=== PATIENT | male | born 1950 | race Caucasian/White ===

== ENCOUNTER → 2016-09-30 | Outpatient (CLI) | payer BC, OTHER ==
[~2016-09-30] MED LIST: ASPEC81 PO; CHOLTAB3 PO; LISI-729 PO; METO25TA31 PO; PANT40TA PO; SILD1TAB11 PO; TEMA15CA4 PO
[2016-09-30 18:50] LABS: INR 1.9 (0.9-1.1); PROTHROMBIN TIME (PATIENT) 21.4 SECONDS (9.0-12.0)
== END | disposition home or self-care (01) ==
LOC: C.LABSPEC 10:36
PROVIDERS: ATTEND Family Medicine
DX: I26.99 Other pulmonary embolism without acute cor pulmonale (principal)

== ENCOUNTER → 2016-11-02 | Outpatient (CLI) | payer OTHER | END | disposition home or self-care (01) | LOC: C.LABSPEC 13:37 | PROVIDERS: ATTEND Family Medicine | DX: R53.83 Other fatigue (principal); R63.5 Abnormal weight gain ==

== ENCOUNTER → 2017-05-03 | Outpatient (CLI) | payer OTHER ==
[2017-05-03 18:22] LABS: INR 2.6 (0.9-1.1); PROTHROMBIN TIME (PATIENT) 29.3 SECONDS (9.0-12.0)
== END | disposition home or self-care (01) ==
LOC: C.LABSPEC 17:56
PROVIDERS: ATTEND Family Medicine
DX: I26.99 Other pulmonary embolism without acute cor pulmonale (principal)

== ENCOUNTER → 2017-11-10 | Outpatient (CLI) | payer OTHER ==
[2017-11-10 18:30] LABS: INR 3.3 (0.9-1.1)
== END | disposition home or self-care (01) ==
LOC: C.LABSPEC 17:53
PROVIDERS: ATTEND Family Medicine
DX: I26.99 Other pulmonary embolism without acute cor pulmonale (principal)

== ENCOUNTER → 2018-03-09 | Outpatient (CLI) | payer OTHER ==
[2018-03-09 18:37] LABS: INR 2.7 (0.9-1.1)
== END | disposition home or self-care (01) ==
LOC: C.LABSPEC 18:07
PROVIDERS: ATTEND Family Medicine
DX: I26.99 Other pulmonary embolism without acute cor pulmonale (principal)

== ENCOUNTER 2020-01-29 08:58 | Inpatient (IN) ==
[2020-01-29] MEDS ORDERED: VANCOMYCIN HCL 2,000 MG in SODIUM CHLORIDE 0.9% 500 ML IV STA (09:02)
[2020-01-29] MEDS ORDERED: ERTAPENEM SODIUM 10 ML IV STA (09:02)
[2020-01-29] MEDS ORDERED: VANCOMYCIN CONSULT ACTIVE PRN ×2 (09:02→13:31)
[2020-01-29] MEDS ORDERED: SODIUM CHLORIDE 0.9% 1000ML 1,000 ML IV SCH (09:15)
--- NOTE | 2020-01-29 09:31 | XRay Report ---
XR chest 1V portable CLINICAL HISTORY: SEPSIS COMPARISON STUDY: 06/03/2009 FINDINGS: There are postsurgical changes of a midline sternotomy. There is no failure. There is no fo jas pulmonary consolidation. There are no pleural effusions.[ IMPRESSION: No active disease in the chest. ACT 112: Negative or not required by law. Electronically signed by: Jairon Graves M.D. 01/29/2020 9:30 AM
[2020-01-29 09:36] LABS: Basophils # (auto) 0.02 K/uL (0-0.2); Basophils % (auto) 0.2 %; Eosinophils # (auto) 0.08 K/uL (0-0.5); Eosinophils % (auto) 0.6 %; Hematocrit (blood only) 48.7 % (42-52); Hemoglobin 17.3 g/dL (14.0-18.0); Immature Granulocytes # (auto) 0.05 K/uL (0.00-0.02); Immature Granulocytes % (auto) 0.4 %; Lymphocytes # (auto) 1.52 K/uL (1.2-3.4); Lymphocytes % (auto) 11.5 %; Mean Corpuscular Hemoglobin 33.9 pg (25-34); Mean Corpuscular Hgb Conc 35.5 g/dL (32-36); Mean Corpuscular Volume 95.3 fL (80-100); Mean Platelet Volume 10.3 fL (7.4-10.4); Monocytes # (auto) 1.46 K/uL (0.11-0.59); Neutrophils % (auto) 76.3 %; Platelet Count 190 K/uL (130-400); RDW Coefficient of Variation 16.2 % (11.5-14.5); RDW Standard Deviation 56.4 fL (36.4-46.3); Red Blood Count 5.11 M/uL (4.7-6.1); White Blood Count 13.23 K/uL (4.8-10.8)
[2020-01-29 09:47] LABS: INR 2.5 (0.9-1.1); Partial Thromboplastin Ratio 1.4; Partial Thromboplastin Time 38.1 Seconds (21.0-31.0); Prothrombin Time 25.1 Seconds (9.0-12.0)
[2020-01-29 09:50] LABS: Alanine Aminotransferase 37 U/L (12-78); Albumin Level 3.2 gm/dl (3.4-5.0); Aspartate Aminotransferase 25 U/L (15-37); BUN Creatinine Ratio 14.6 (10-20); Blood Urea Nitrogen 27 mg/dl (7-18); Calcium 8.4 mg/dl (8.5-10.1); Carbon Dioxide 25 mmol/L (21-32); Chloride 104 mmol/L (98-107); Creatinine Clr Calc Pharmacy 39.2 ml/min; Est GFR (African American) 43.3; Est GFR (Non-African American) 37.3; Glucose 110 mg/dl (70-99); Magnesium 2.2 mg/dl (1.8-2.4); Potassium 3.9 mmol/L (3.5-5.1); Sodium 137 mmol/L (136-145)
[2020-01-29 09:55] LABS: Albumin Globulin Ratio 0.7 (0.9-2); Alkaline Phosphatase 74 U/L (45-117); Bilirubin,Total 1.3 mg/dl (0.2-1); Globulin 4.3 gm/dl (2.5-4.0); Total Protein 7.5 gm/dl (6.4-8.2); Troponin I < 0.015 ng/ml (0-0.045)
--- NOTE | 2020-01-29 10:37 | History & Physical Report ---
Date of Service January 29, 2020 Assessment & Plan (1) Gram-positive bacteremia: This is a 69yo M with PMH of bicuspid aortic valve s/p AVR complicated by endocarditis requiring repeat valve replacement, ascending aortic aneurysm, pulmonary hypertension, pulmonary embolism on coumadin, chronic HF with preserved EF, CKD III, h/o splenectomy and other medical problems listed below who presents with intermittent fever x 2 weeks and was found to have gram positive bacteremia and possible endocarditis. -Intermittent fever x2 weeks with T-max of 100.7 F. Treated with 7-day course doxycycline for sinusitis 1 week ago -Blood cultures ordered yesterday with preliminary gram-positive cocci, patient instructed to return to hospital for further treatment -Started empirically on ertapenem and vancomycin. Follow cultures. Telemedicine ID consult placed with [employer] ID -ED physician discussed with Dr. Lyons of [facility] cardiology due to concern for possible endocarditis, with history of AVR, endocarditis in the past. TTE performed, read pending (2) H/O aortic valve replacement: History of AVR in 1999 while living in [place], [address] [facility] after found to have flail leaflet , 2011 [address] 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 Luis in [place] (3) Pulmonary embolism on long-term anticoagulation therapy: Continue anticoagulation with coumadin. INR currently 2.5 (4) Acute kidney injury superimposed on chronic kidney disease: Creatinine elevated at 1.8 (baseline ~1.5) -Hold Bumex for today. Reassess volume status and renal function tomorrow (5) Pulmonary hypertension: Takes Adempas 2.5mg TID normally. Has not taken since last evening and medication is not on formulary -Will call to see if son can bring in today. Otherwise, will reach out to pulmonary service for further recommendation DVT Ppx: Coumadin Code status: FULL PCP: Lucas Nelson Dispo: Admit to PCU. Plan to return home once medically stable. Patient seen in collaboration with Dr. Flannery. Please see addendum. History of Present Illness Chief Complaint: fever, myalgias Primary Care Provider: Lucas Nelson This is a 69yo M with PMH of bicuspid aortic valve s/p AVR complicated by endocarditis requiring repeat valve replacement, ascending aortic aneurysm, pulmonary hypertension, pulmonary embolism on coumadin, chronic HF with preserved EF, CKD III, h/o splenectomy and other medical problems listed below who presents with intermittent fever x 2 weeks. T-max of 100.7 F. Has also had intermittent chills. Was seen by PCP with initial thoughts of sinusitis and was treated with 7-day course of doxycycline. COVID-19 PCR was also ordered and negative on January 23. Intermittent fevers persisted and patient developed flank pain, which he was seen for in the ED yesterday with concern for appendicitis. CT abdomen pelvis was normal but blood cultures were obtained. Initial cultures grew gram-positive cocci patient was instructed to return to ED early this morning. Currently, patient feels well. Denies any fever, chills, headache, lightheadedness, chest pain, palpitations, shortness of breath, nausea, vomiting, abdominal pain, dysuria, diarrhea or constipation. There is concern for endocarditis due to history of AVR complicated by endocarditis in the past requiring repeat valve replacement. During this time, endocarditis was thought to be caused by lower extremity cellulitis. Patient denies any wounds or rashes. Did have 2 lipomas removed last week. CXR and UA appear unremarkable. ED provider discussed with cro, with TTE ordered. Broad-spectrum antibiotic coverage started with ertapenem and vancomycin. Most recent TTE from 11/04 with EF of 68%, normal left ventricular wall motion, mildly dilated right ventricle with normal systolic function, proximal ascending thoracic aorta is moderately enlarged (4.8 cm), moderately dilated aortic arch (4.2 cm) and estimated pulmonary artery systolic pressure is 61mm Hg. Allergies Allergy/AdvReac Type Severity Reaction Status Date / Time Penicillins Allergy Unknown RASH FROM Verified 01/29/20 10:39 PCN; HAD KEFLEX W/O PROBLEM rifampin Allergy Unknown rash Unverified 01/29/20 10:39 ceftriaxone AdvReac Intermediate RASH AND Unverified 01/29/20 10:39 TINGLING BACK OF NECK HE WAS COMPLETING A 6 W Home Medications Home Medications Medication Instructions Recorded Confirmed Type aluminum chloride [Hypercare] 15 % TOPICAL HS 01/28/20 01/29/20 History bumetanide 2 mg PO HS 01/28/20 01/29/20 History lovastatin 40 mg PO HS 01/28/20 01/29/20 History metoprolol tartrate 100 mg PO BID 01/28/20 01/29/20 History pantoprazole 40 mg PO QAM 01/28/20 01/29/20 History riociguat [Adempas] 2.5 mg PO TID 01/28/20 01/29/20 History temazepam 30 mg PO HS 01/28/20 01/29/20 History diphenhydramine HCl [Allergy 25 mg PO HS PRN 01/29/20 01/29/20 History Relief(diphenhydramin)] famotidine 40 mg PO HS 01/29/20 01/29/20 History warfarin 2.5 mg PO TUTH@0800 01/29/20 01/29/20 History warfarin 5 mg PO SUMOWEFRSA@0800 01/29/20 01/29/20 History Past Med/Surg History Medical History Ascending aortic aneurysm Chronic diastolic heart failure CKD (chronic kidney disease), stage III History of endocarditis Hypertension Pulmonary embolism on long-term anticoagulation therapy Pulmonary hypertension Surgical History H/O aortic valve replacement 1999 while living in [place], [address] [facility] after found to have flail leaflet , 2011 [address] 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 Physical Exam Physical Exam: General Appearance: WD/WN, vitals as above, NAD, sitting up in bed, pleasant, conversing easily Head: normocephalic, atraumatic Eyes: normal inspection, PERRL, conjunctivae normal, anicteric sclerae ENT: external ear and nose normal, oropharynx normal Neck: trachea midline, no thyromegaly normal visual inspection Respiratory: normal respiratory effort, lungs clear to auscultation, no wheeze, rales, rhonchi. Normal insp/exp effort, no accessory muscle use Cardiovascular: regular rate, rhythm, +systolic murmur, normal peripheral pulses, no BLE edema. Vessels: no JVD or carotid bruit Chest: normal inspection of chest Abdomen/GI: normal bowel sounds, soft, nontender, no hepatosplenomegaly Extremities/Musculoskeletal: no cyanosis or clubbing, extremities motor strength 5/5 Neurologic: PERRL, EOMI, accommodation nl, no face palsy, no dysarthria, CN's II-XI intact bilaterally and moves all extremities Psychiatric: A+Ox3, euthymic affect Skin: no rashes, normal color, warm/dry. + R forearm with healing incisions, sutures in place. No surrounding erythema or drainage Results & Data Results & Data ([facility]) Vital Signs (Past 12 Hours) Vital Signs Temp Pulse Resp BP Pulse Ox 01/29/20 09:04 37.1 C 76 18 104/73 94 Laboratory Results Short CBC 01/29/20 Range/Units 09:20 WBC 13.23 H (4.8-10.8) K/uL Hgb 17.3 (14.0-18.0) g/dL Hct 48.7 (42-52) % Plt Count 190 (130-400) K/uL BMP 01/29/20 09:20 Sodium 137 Potassium 3.9 Chloride 104 Carbon Dioxide 25 BUN 27 H Creatinine 1.83 H Glucose 110 H Calcium 8.4 L Cardiac Enzymes 01/29/20 Range/Units 09:20 Troponin I < 0.015 (0-0.045) ng/ml Liver Function 01/29/20 Range/Units 09:20 Total Bilirubin 1.3 H (0.2-1) mg/dl AST 25 (15-37) U/L ALT 37 (12-78) U/L Alkaline Phosphatase 74 (45-117) U/L Albumin 3.2 L (3.4-5.0) gm/dl Urine 01/29/20 Range/Units 12:05 Urine Color Dark Yellow Urine Appearance Clear (Clear) Urine pH 5.5 (4.5-7.5) Ur Specific [place] 1.021 (1.000-1.030) Urine Protein Trace H (Negative) Urine Glucose (UA) Negative (Negative) Diagnostic Findings CXR: IMPRESSION: No active disease in the chest. Code Status & VTE Plan VTE Prophylaxis Plan VTE Prophylaxis will be ordered: Yes Supervising Physician Co-Signing Physician Notes Patient is a 69-year-old male with complex medical history, presents with history of fever associated with chills since 2 weeks duration. He recently completed doxycycline course for 7 days for sinusitis. He was evaluated in ED yesterday for flank pain and concern for appendicitis which was ruled out. Patient had gram-positive cocci in his blood cultures currently. Given history of aortic valve replacement, with gram-positive cocci blood cultures, patient is admitted for management of possible endocarditis. Patient denies any chest pain, shortness of breath, dizziness, nausea, abdominal pain currently. On exam patient is moderately built and nourished, no apparent distress, normocephalic atraumatic, lungs are clear to auscultation, S1, S2, systolic murmur, no pedal edema, abdomen soft, nontender, normal bowel sounds, grossly no focal neurologic deficits, right upper extremity sutures (from recent lipoma resection. Patient is admitted for management of gram-positive bacteremia. To rule out endocarditis. Echo pending. Will start on broad-spectrum antibiotics including vancomycin, ertapenem. Consulted cardiology, ID. May need JO for further evaluation. Also noted KELBY on CKD. Will hold Bumex and give gentle fluids today. Monitor renal function, avoid nephrotoxic agents as able. Will repeat EKG in the morning to monitor for conduction problems. I personally reviewed the record. Patient is interviewed and examined at bedside. Patient's care is coordinated with Lorena Pepper PA-C. Please refer to the documentation above for details of patient's presentation and for discussion of other issues.
--- NOTE | 2020-01-29 10:43 | Emergency Department Note ---
Impression & Plan Bacteremia ED Provider Note INFORMANT: Patient ED PROVIDER(S): Agustin Mendoza MD CHIEF COMPLAINT: Abnormal labs PLAN: Disposition: admitted Condition: [Guarded] MEDICAL DECISION MAKING: Patient presented back to emergency department after he was notified that his blood cultures done yesterday by me were positive. The patient has gram- positive cocci growing in his blood culture. He noted feeling feverish over the evening. On presentation he had stable vital signs. He was hydrated. New blood cultures were ordered. Broad-spectrum antibiotic coverage with imipenem and vancomycin was initiated. I did discuss this with the pharmacy given his history of his penicillin allergy. The patient had a mild leukocytosis which is slightly increased from yesterday. Creatinine was mildly elevated at 1.8. Lactate and troponin were negative. Electrolytes unremarkable. Urinalysis and new blood cultures pending. The patient had a consultation made with [facility] cardiology, Dr. Lyons. He will see the patient in consultation. Echocardiogram was ordered by me. Consultation was made with the [facility] hospitalist service. The patient will be admitted by Dr. Diego. Patient was pleased with the treatment and was admitted for further management. Triage Nursing notes reviewed and agree them. [Prior medical records reviewed] blood cultures done yesterday revealed gram- positive cocci Vital Signs: reviewed and remarkable for [no significant abnormalities] Differential diagnosis: sepsis, bacteremia, endocarditis, viral syndrome, otitis, pharyngitis, pneumonia, influenza, meningitis, urinary tract infection, as well as other pathologies. Diagnostics interpreted by me: ECG: Rate: 75 Rhythm: Sinus rhythm with PVCs [place]: Normal QRS:Normal ST segements:No elevation or depression Other:No PACs Cardiac Monitoring: Cardiac monitoring ordered by me: The patient was placed on continuous cardiac monitoring and observed. It revealed a normal sinus rhythm at 77 beats per minute without evidence of dysrhythmia. Imaging studies: Chest x-ray. Findings: A chest x-ray was performed and revealed no pneumothorax, effusion, infiltrate, pulmonary edema, free air under the diaphragm, or wide mediastinum. Impression: No acute disease. Consultation(s): [none] HPI: The patient is a 69 year old male who presents to the Emergency Room with complaints of abnormal labs. Patient had blood cultures done yesterday and was called back today as they were positive. He has had intermittent fevers over the last 2 weeks. He was treated with oral doxycycline and prednisone at the initiation due to concerns about possible sinus infection. The patient does have a history of aortic valve endocarditis. He has had 3 prior aortic valve replacement. He did feel feverish last night. He noted T-max was 99 which is high for him by his own account. The patient also notes the following as sociated symptoms, some mild shortness of breath. The patient has found no relieving factors. Current pain is rated as 0/10. Flank pain that occurred yesterday is resolved. Pt denies LOC, headache, fevers, chills, diaphoresis, visual changes, neck pain, chest pain, breathing difficulties, nausea, vomiting, abdominal pain, back pain, melena, hematochezia, urinary symptoms, numbness, weakness, lymphadenopathy, rash, or other complaints. ROS: See above HPI for pertinent positives & negatives. A total of [10] systems reviewed and were otherwise negative. PAST MEDICAL HISTORY:[See Below] PAST SURGICAL HISTORY:[See Below] FAMILY HISTORY:[See Below] SOCIAL HISTORY:[See Below] HOME MEDICATIONS:[See Below] ALLERGIES:[See Below] VITALS:[See Below] PHYSICAL EXAMINATION: GENERAL: Awake, alert, well-appearing, in no distress HENT: Normocephalic, atraumatic. No facial swelling. EYES: Normal conjunctiva. Sclera non-icteric. NECK: Inspection normal. Non-tender. Supple. No nuchal rigidity. FROM. No masses. RESPIRATORY: Clear to auscultation. No wheezes. No rales. Normal respiratory effort. CARDIAC: Normal rate. Normal rhythm. Systolic ejection murmur. No rubs. Extremities warm and well perfused. Pulses equal. No JVD. GI: Soft, non-distended. No tenderness to palpation. No rebound or guarding. No masses. RECTAL: Deferred. MUSCULOSKELETAL: Atraumatic. Chest examination reveals no tenderness. The back is symmetrical on inspection without obvious abnormality. There is no CVA tenderness to palpation. No joint edema. LOWER EXTREMITIES: Calves are equal size bilaterally and non-tender. No edema. No discoloration. NEURO: Normal sensorium. No sensory or motor deficits noted. SKIN: No rash or jaundice noted. ED COURSE: [Critical Care:] I have personally spent greater than 31 minutes of critical care time in the direct management of this patient. This includes bedside care, interpretation of diagnostic studies, and testing, discussion with consultants, patient, and other required patient management activities. This 31 minutes is in excess of all separately billable procedures. Agustin Mendoza MD Past Med/Surg History Social History Preferred Language: Maori Communication Ability: Effective Manager Food Safety Required: No Beliefs That Will Affect Care: None Current Living Situation: Alone Other Information That Helps Us Care for You: No Feels Safe at Home: Yes Safety Concerns: Feels Safe At This Time Smoking Status: Former smoker Hx Alcohol Use: No Hx Substance Use: No Allergies Allergies Allergy/AdvReac Type Severity Reaction Status Date / Time Penicillins Allergy Unknown RASH FROM Verified 01/29/20 10:39 PCN; HAD KEFLEX W/O PROBLEM rifampin Allergy Unknown rash Unverified 01/29/20 10:39 ceftriaxone AdvReac Intermediate RASH AND Unverified 01/29/20 10:39 TINGLING BACK OF NECK HE WAS COMPLETING A 6 W Home Meds Home Medications Medication Instructions Recorded Confirmed aluminum chloride [Hypercare] 15 % TOPICAL HS 01/28/20 01/29/20 bumetanide 2 mg PO HS 01/28/20 01/29/20 lovastatin 40 mg PO HS 01/28/20 01/29/20 metoprolol tartrate 100 mg PO BID 01/28/20 01/29/20 pantoprazole 40 mg PO QAM 01/28/20 01/29/20 riociguat [Adempas] 2.5 mg PO TID 01/28/20 01/29/20 temazepam 30 mg PO HS 01/28/20 01/29/20 diphenhydramine HCl [Allergy 25 mg PO HS PRN 01/29/20 01/29/20 Relief(diphenhydramin)] famotidine 40 mg PO HS 01/29/20 01/29/20 warfarin 2.5 mg PO TUTH@0800 01/29/20 01/29/20 warfarin 5 mg PO SUMOWEFRSA@0800 01/29/20 01/29/20 Results & Data (ED) Vital Signs Vital Signs - 24 hr 01/29/20 09:04 01/29/20 09:44 Temperature 37.1 C Temperature Source Oral Pulse Rate 76 Respiratory Rate 18 Respiratory Effort / Characteristics Non-Labored Spontaneous Respiratory Depth Normal Respiratory Pattern Regular Blood Pressure 104/73 Blood Pressure Mean 83 Blood Pressure Position Sitting Pulse Oximetry 94 Oxygen Delivery Method Room Air Room Air Sepsis Recent Fever Within 48 Hours Yes Sepsis New/Unexplained Change in Mental Status No Laboratory Data Result diagrams: 01/29/20 09:01/29/20 09:20 Lab Results 01/29/20 01/29/20 01/29/20 Range/Units 09:20 09:20 09:20 WBC 13.23 H (4.8-10.8) K/uL RBC 5.11 (4.7-6.1) M/uL Hgb 17.3 (14.0-18.0) g/dL Hct 48.7 (42-52) % MCV 95.3 (80-100) fL MCH 33.9 (25-34) pg MCHC 35.5 (32-36) g/dL RDW Std Deviation 56.4 H (36.4-46.3) fL RDW Coeff of Gely 16.2 H (11.5-14.5) % Plt Count 190 (130-400) K/uL MPV 10.3 (7.4-10.4) fL Immature Gran % (Auto) 0.4 % Neut % (Auto) 76.3 % Lymph % (Auto) 11.5 % Coffey % (Auto) 11.0 % Eos % (Auto) 0.6 % Baso % (Auto) 0.2 % Neut # (Auto) 10.10 H (1.4-6.5) K/uL Lymph # (Auto) 1.52 (1.2-3.4) K/uL [place]y # (Auto) 1.46 H (0.11-0.59) K/uL Eos # (Auto) 0.08 (0-0.5) K/uL Baso # (Auto) 0.02 (0-0.2) K/uL Immature Gran # (Auto) 0.05 H (0.00-0.02) K/uL PT 25.1 H (9.0-12.0) Seconds INR 2.5 H (0.9-1.1) APTT 38.1 H (21.0-31.0) Seconds PTT Ratio 1.4 Sodium 137 (136-145) mmol/L Potassium 3.9 (3.5-5.1) mmol/L Chloride 104 (98-107) mmol/L Carbon Dioxide 25 (21-32) mmol/L Anion Gap 8.0 (3-11) BUN 27 H (7-18) mg/dl Creatinine 1.83 H (0.6-1.4) mg/dl Est Cr Clr Drug Dosing 39.2 ml/min Est GFR ( Amer) 43.3 Est GFR (Non-Af Amer) 37.3 BUN/Creatinine Ratio 14.6 (10-20) Glucose 110 H (70-99) mg/dl Lactate (0.4-2.0) mmol/L Calcium 8.4 L (8.5-10.1) mg/dl Magnesium 2.2 (1.8-2.4) mg/dl Total Bilirubin 1.3 H (0.2-1) mg/dl AST 25 (15-37) U/L ALT 37 (12-78) U/L Alkaline Phosphatase 74 (45-117) U/L Troponin I < 0.015 (0-0.045) ng/ml Total Protein 7.5 (6.4-8.2) gm/dl Albumin 3.2 L (3.4-5.0) gm/dl Globulin 4.3 H (2.5-4.0) gm/dl Albumin/Globulin Ratio 0.7 L (0.9-2) / Range/Units 09:20 WBC (4.8-10.8) K/uL RBC (4.7-6.1) M/uL Hgb (14.0-18.0) g/dL Hct (42-52) % MCV (80-100) fL MCH (25-34) pg MCHC (32-36) g/dL RDW Std Deviation (36.4-46.3) fL RDW Coeff of Gely (11.5-14.5) % Plt Count (130-400) K/uL MPV (7.4-10.4) fL Immature Gran % (Auto) % Neut % (Auto) % Lymph % (Auto) % Coffey % (Auto) % Eos % (Auto) % Baso % (Auto) % Neut # (Auto) (1.4-6.5) K/uL Lymph # (Auto) (1.2-3.4) K/uL Coffey # (Auto) (0.11-0.59) K/uL Eos # (Auto) (0-0.5) K/uL Baso # (Auto) (0-0.2) K/uL Immature Gran # (Auto) (0.00-0.02) K/uL PT (9.0-12.0) Seconds INR (0.9-1.1) APTT (21.0-31.0) Seconds PTT Ratio Sodium (136-145) mmol/L Potassium (3.5-5.1) mmol/L Chloride (98-107) mmol/L Carbon Dioxide (21-32) mmol/L Anion Gap (3-11) BUN (7-18) mg/dl Creatinine (0.6-1.4) mg/dl Est Cr Clr Drug Dosing ml/min Est GFR ( Amer) Est GFR (Non-Af Amer) BUN/Creatinine Ratio (10-20) Glucose (70-99) mg/dl Lactate 0.9 (0.4-2.0) mmol/L Calcium (8.5-10.1) mg/dl Magnesium (1.8-2.4) mg/dl Total Bilirubin (0.2-1) mg/dl AST (15-37) U/L ALT (12-78) U/L Alkaline Phosphatase (45-117) U/L Troponin I (0-0.045) ng/ml Total Protein (6.4-8.2) gm/dl Albumin (3.4-5.0) gm/dl Globulin (2.5-4.0) gm/dl Albumin/Globulin Ratio (0.9-2) Administered Medications Vancomycin HCl 2,000 mg/ (Sodium Chloride) 540 mls @ 200 mls/hr IV NOW STA Stop: 01/29/20 11:43 Last Admin: 01/29/20 09:27 Dose: 200 mls/hr Documented by: [id number] Sodium Chloride (Nss 1000ml) 1,000 mls @ 150 mls/hr IV [id number] [facility] Stop: 02/28/20 09:14 Last Admin: 01/29/20 09:35 Dose: 150 mls/hr Documented by: [id number] Discontinued Medications Ertapenem (Invanz) 10 mls @ 2 mls/min IV NOW STA Stop: 01/29/20 09:06 Last Admin: 01/29/20 09:28 Dose: 2 mls/min Documented by: [id number] Discharge Plan Visit Data Chief Complaint: Infection Stated Complaint: INFECTION ED Provider: Agustin Mendoza Discharge Problem: Bacteremia Forms Stand Alone Forms: [facility] Prescriptions Prescriptions: No Action metoprolol tartrate 100 mg tablet 100 mg PO BID RF: 0 lovastatin 40 mg tablet 40 mg PO HS RF: 0 temazepam 30 mg capsule 30 mg PO HS RF: 0 pantoprazole 40 mg tablet,delayed release (DR/EC) 40 mg PO QAM RF: 0 bumetanide 1 mg tablet 2 mg PO HS RF: 0 Hypercare 15 % (w/v) liquid 15 % TOPICAL HS RF: 0 Adempas 2.5 mg tablet 2.5 mg PO TID RF: 0 famotidine 40 mg tablet 40 mg PO HS RF: 0 diphenhydramine HCl [Allergy Relief(diphenhydramin)] 25 mg tablet 25 mg PO HS PRN (Reason: Allergy Symptoms) RF: 0 warfarin 5 mg tablet 2.5 mg PO TUTH@0800 RF: 0 warfarin 5 mg tablet 5 mg PO SUMOWEFRSA@0800 RF: 0
[2020-01-29] MEDS ORDERED: ACETAMINOPHEN 325 MG TAB PO PRN (12:10)
[2020-01-29] MEDS ORDERED: POLYETHYLENE (MIRALAX) 17 GM PACK PO PRN (12:10)
[2020-01-29 12:21] LABS: Appearance Urine Clear (Clear); Bacteria Urine Automated Negative (Negative); Bilirubin Urine Negative (Negative); Blood Urine Trace (Negative); Color Urine Dark Yellow; Glucose Urine UA Negative (Negative); Ketones Urine Trace (Negative); Leukocyte Esterase Urine Negative (Negative); Nitrite Urine Negative (Negative); Protein Urine Trace (Negative); RBC Urine Automated 0-4 /hpf (0-4); Specific Gravity Urine 1.021 (1.000-1.030); Urobilinogen Urine Negative (Negative); pH Urine 5.5 (4.5-7.5)
--- NOTE | 2020-01-29 14:58 | Cardiology Consultation ---
Date of Consultation January 29, 2020 Assessment & Plan (1) Gram-positive bacteremia: (2) Fever: (3) Prosthetic valve endocarditis: (4) Ascending aortic aneurysm: (5) Pulmonary hypertension: (6) Pulmonary embolism on long-term anticoagulation therapy: (7) Acute kidney injury superimposed on chronic kidney disease: Patient is a 69-year-old male with complex history as outlined with 2 prior episodes of prosthetic valve endocarditis, last episode 2011 presents now with several week history of persistent febrile complaints and malaise. Blood cultures drawn yesterday are promptly growing gram-positive cocci in chains on both sets. Findings are presumptive of recurrent prosthetic valve recurrent endocarditis. Patient was begun on antibiotics in ER and repeat blood cultures drawn. Physical examination and history are not notable for signs or symptoms of thromboembolic disease, heart failure or conduction system disease. Preliminary review of echocardiogram appears similar to prior study of October 2019 by report and no visualized mobile vegetation No current findings suggest need for urgent or early valve replacement on patient with 3 prior valve replacements and underlying pulmonary hypertension reflecting high surgical risk Plan: Antibiotic therapy initiated and ID and sensitivity pending from blood cultures. Pharmacy assistance in dosing chronic renal insufficiency. ID will need to be consulted for aid in management with with minimum therapy 4 to 6 weeks IV antibiotics likely Daily EKGs and telemetry follow-up for any signs of conduction changes We will visually compare echocardiogram to prior studies with likely JO this admission although patient notes difficulties with this procedure in the past. We will tentatively plan for a.m. and this indication suggest more urgent need. We will follow closely during hospitalization History of Present Illness Reason for Consultation: Bacteremia Requesting Physician: Dr. Diego, Dr. Alli Luis Attending Physician: Gertrude Diego MD History of Present Illness Patient is a very complex 69-year-old male with underlying past history which includes 1. Congenitally bicuspid aortic valve with initial aortic valve replacement 1999 with aortic bioprosthesis 2. Bacterial endocarditis, prosthetic aortic valve 2008 with repeat valve replacement 3. 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 Coronary angiography July 2016 minimal luminal irregularities only 6. Ascending aortic aneurysm 7. Hypertension 8. Hyperparathyroidism status post parathyroidectomy 9. CKD stage III Patient presents this admission noting several weeks history of malaise and low- grade to moderate elevation in fever. Was evaluated yesterday in the emergency room due to transient abdominal pain and fever and blood cultures drawn on recommendation with planned echocardiogram today. In the interim blood cultures have returned positive for gram-positive cocci in chains on both cultures he re- presented on contact. Notes no acute cardiac complaints. Denies chest pains tachypalpitations syncope or near syncope. No orthopnea. No peripheral edema. No recent dental procedures. Did undergo lipoma resection bilateral forearms 01/14/2020 uncomplicated procedure. No acute weight loss or gain. No neurologic complaints.'s been taking medications as prescribed. No productive cough No headaches or visual changes No skin lesions or rashes Patient was treated as an outpatient with oral doxycycline empirically without change in febrile pattern Allergies Allergy/AdvReac Type Severity Reaction Status Date / Time Penicillins Allergy Unknown RASH FROM Verified 01/29/20 10:39 PCN; HAD KEFLEX W/O PROBLEM rifampin Allergy Unknown rash Unverified 01/29/20 10:39 ceftriaxone AdvReac Intermediate RASH AND Unverified 01/29/20 10:39 TINGLING BACK OF NECK HE WAS COMPLETING A 6 W Home Medications Home Medications Medication Instructions Recorded Confirmed Type aluminum chloride [Hypercare] 15 % TOPICAL HS 01/28/20 01/29/20 History bumetanide 2 mg PO HS 01/28/20 01/29/20 History lovastatin 40 mg PO HS 01/28/20 01/29/20 History metoprolol tartrate 100 mg PO BID 01/28/20 01/29/20 History pantoprazole 40 mg PO QAM 01/28/20 01/29/20 History riociguat [Adempas] 2.5 mg PO TID 01/28/20 01/29/20 History temazepam 30 mg PO HS 01/28/20 01/29/20 History diphenhydramine HCl [Allergy 25 mg PO HS PRN 01/29/20 01/29/20 History Relief(diphenhydramin)] famotidine 40 mg PO HS 01/29/20 01/29/20 History warfarin 2.5 mg PO TUTH@0800 01/29/20 01/29/20 History warfarin 5 mg PO SUMOWEFRSA@0800 01/29/20 01/29/20 History Patient History Medical History Ascending aortic aneurysm Chronic diastolic heart failure CKD (chronic kidney disease), stage III History of endocarditis Hypertension Pulmonary embolism on long-term anticoagulation therapy Pulmonary hypertension Surgical History H/O aortic valve replacement 2000 while living in [place], 2009 @ [facility] after found to have flail leaflet , 2011 porcine valve @ [facility] [place] after endocarditis with vegetation H/O parathyroidectomy History of embolectomy Hx of splenectomy Family History Other Hypertension Social History Preferred Language: Polish Communication Ability: Effective Continuous Improvement Black Belt Required: No Beliefs That Will Affect Care: None Current Living Situation: Alone Other Information That Helps Us Care for You: No Feels Safe at Home: Yes Safety Concerns: Feels Safe At This Time Smoking Status: Former smoker Hx Alcohol Use: Yes Alcohol Intake Frequency: Weekly Hx Substance Use: No Physical Exam Constitutional: WD/WN, vitals as above no acute distress Eyes: PERRL, conjunctivae normal, anicteric sclerae ENMT: external ear and nose normal, oropharynx normal Neck: trachea midline, no thyromegaly Parathyroidectomy scars present Respiratory: Auscultation: + diminished lung sounds (Clear to auscultation) Cardiovascular: Rate/Rhythm: regular rate and regular rhythm Heart Sounds: normal S1 and normal S2; no gallop and no murmur (Harsh grade 2/6 to 3/6 systolic murmur less than grade 1/6 diastolic murmur) Palpation: normal PMI Vessels: normal carotid upstroke and radial pulses present; no JVD and no carotid bruit Extremities: no edema Gastrointestinal (Abdomen): normal bowel sounds, soft, nontender, no hepatosplenomegaly Musculoskeletal: no cyanosis or clubbing, extremities motor strength 5/5 Skin: no rashes, warm and dry Surgical incisions left and right forearm healing Neurologic: PERRL, EOMI, accommodation nl, no face palsy, no dysarthria Psychiatric: A+Ox3, euthymic affect Results & Data ([facility]) Vital Signs (Past 12 Hours) Vital Signs Temp Pulse Pulse Resp BP BP Pulse Ox 01/29/20 11:32 36.7 C 81 72 20 115/71 94 01/29/20 11:01 79 26 H 111/67 01/29/20 11:00 83 26 H 92 01/29/20 10:39 73 25 H 103/66 89 L 01/29/20 10:30 72 23 94 01/29/20 10:01 73 29 H 90 01/29/20 10:00 73 24 90 01/29/20 09:30 91 01/29/20 09:28 83 22 93 01/29/20 09:04 37.1 C 76 18 104/73 94 Laboratory Results Laboratory Results - last 24 hr 01/29/20 01/29/20 01/29/20 09:20 09:20 09:20 WBC 13.23 H RBC 5.11 Hgb 17.3 Hct 48.7 MCV 95.3 MCH 33.9 MCHC 35.5 RDW Std Deviation 56.4 H RDW Coeff of Gely 16.2 H Plt Count 190 MPV 10.3 Immature Gran % (Auto) 0.4 Neut % (Auto) 76.3 Lymph % (Auto) 11.5 [place] % (Auto) 11.0 Eos % (Auto) 0.6 Baso % (Auto) 0.2 Neut # (Auto) 10.10 H Lymph # (Auto) 1.52 [place] # (Auto) 1.46 H Eos # (Auto) 0.08 Baso # (Auto) 0.02 Immature Gran # (Auto) 0.05 H PT 25.1 H INR 2.5 H APTT 38.1 H PTT Ratio 1.4 Sodium 137 Potassium 3.9 Chloride 104 Carbon Dioxide 25 Anion Gap 8.0 BUN 27 H Creatinine 1.83 H Est Cr Clr Drug Dosing 39.2 Est GFR ( Amer) 43.3 Est GFR (Non-Af Amer) 37.3 BUN/Creatinine Ratio 14.6 Glucose 110 H Lactate Calcium 8.4 L Magnesium 2.2 Total Bilirubin 1.3 H AST 25 ALT 37 Alkaline Phosphatase 74 Troponin I < 0.015 Total Protein 7.5 Albumin 3.2 L Globulin 4.3 H Albumin/Globulin Ratio 0.7 L Urine Color Urine Appearance Urine pH Ur Specific [place] Urine Protein Urine Glucose (UA) Urine Ketones Urine Blood Urine Nitrite Urine Bilirubin Urine Urobilinogen Ur Leukocyte Esterase Urine WBC (Auto) Urine RBC (Auto) U Hyaline Cast (Auto) U Epithel Cells (Auto) Urine Bacteria (Auto) 01/29/20 01/29/20 09:20 12:05 WBC RBC Hgb Hct MCV MCH MCHC RDW Std Deviation RDW Coeff of Gely Plt Count MPV Immature Gran % (Auto) Neut % (Auto) Lymph % (Auto) [place] % (Auto) Eos % (Auto) Baso % (Auto) Neut # (Auto) Lymph # (Auto) [place] # (Auto) Eos # (Auto) Baso # (Auto) Immature Gran # (Auto) PT INR APTT PTT Ratio Sodium Potassium Chloride Carbon Dioxide Anion Gap BUN Creatinine Est Cr Clr Drug Dosing Est GFR ( Amer) Est GFR (Non-Af Amer) BUN/Creatinine Ratio Glucose Lactate 0.9 Calcium Magnesium Total Bilirubin AST ALT Alkaline Phosphatase Troponin I Total Protein Albumin Globulin Albumin/Globulin Ratio Urine Color Dark Yellow Urine Appearance Clear Urine pH 5.5 Ur Specific [place] 1.021 Urine Protein Trace H Urine Glucose (UA) Negative Urine Ketones Trace H Urine Blood Trace H Urine Nitrite Negative Urine Bilirubin Negative Urine Urobilinogen Negative Ur Leukocyte Esterase Negative Urine WBC (Auto) 1-5 Urine RBC (Auto) 0-4 U Hyaline Cast (Auto) 1-5 U Epithel Cells (Auto) 5-10 H Urine Bacteria (Auto) Negative ECG Additional Comments: 29-JAN-2020 09:22:58 [facility]-EDSTAT ROUTINE RETRIEVAL Sinus rhythm with occasional Premature ventricular complexes Left axis deviation Abnormal ECG When compared with ECG of 31-DEC-2011 06:33, Premature ventricular complexes are now Present OK interval has decreased QRS axis Shifted left Nonspecific T wave abnormality no longer evident in Lateral leads
--- NOTE | 2020-01-29 15:35 | Electrocardiogram Report ---
Test Reason : Blood Pressure : / mmHG Vent. Rate : 075 BPM Atrial Rate : 075 BPM P-R Int : 162 ms QRS Dur : 092 ms QT Int : 408 ms P-R-T Axes : 011 -43 027 degrees QTc Int : 455 ms Sinus rhythm with occasional Premature ventricular complexes Left axis deviation Abnormal ECG When compared with ECG of 31-DEC-2011 06:33, Premature ventricular complexes are now Present HI interval has decreased QRS axis Shifted left Nonspecific T wave abnormality no longer evident in Lateral leads Confirmed by Norbert Vega ([id number]) on 01/29/2020 3:34:56 PM Referred By: REFERRED SELF Confirmed By:Damián Vega
[2020-01-29] MEDS ORDERED: [UNRECOGNIZED DRUG - OTHER] PRN (16:42)
--- NOTE | 2020-01-29 17:00 | Discharge Summary ---
Date of Service January 29, 2020 Admission HPI Per Admitting Provider This is a 69yo M with PMH of bicuspid aortic valve s/p AVR complicated by endocarditis requiring repeat valve replacement, ascending aortic aneurysm, pulmonary hypertension, pulmonary embolism on coumadin, chronic HF with preserved EF, CKD III, h/o splenectomy and other medical problems listed below who presents with intermittent fever x 2 weeks. T-max of 100.7 F. Has also had intermittent chills. Was seen by PCP with initial thoughts of sinusitis and was treated with 7-day course of doxycycline. COVID-19 PCR was also ordered and negative on January 23. Intermittent fevers persisted and patient developed flank pain, which he was seen for in the ED yesterday with concern for appendicitis. CT abdomen pelvis was normal but blood cultures were obtained. Initial cultures grew gram-positive cocci patient was instructed to return to ED early this morning. Currently, patient feels well. Denies any fever, chills, headache, lightheadedness, chest pain, palpitations, shortness of breath, nausea, vomiting, abdominal pain, dysuria, diarrhea or constipation. There is concern for endocarditis due to history of AVR complicated by endocarditis in the past requiring repeat valve replacement. During this time, endocarditis was thought to be caused by lower extremity cellulitis. Patient denies any wounds or rashes. Did have 2 lipomas removed last week. CXR and UA appear unremarkable. ED provider discussed with pricing director, with TTE ordered. Broad-spectrum antibiotic coverage started with ertapenem and vancomycin. Most recent TTE from 11/04 with EF of 68%, normal left ventricular wall motion, mildly dilated right ventricle with normal systolic function, proximal ascending thoracic aorta is moderately enlarged (4.8 cm), moderately dilated aortic arch (4.2 cm) and estimated pulmonary artery systolic pressure is 61mm Hg. Admission Exam Per Admitting Provider Physical Exam Physical Exam: General Appearance: WD/WN, vitals as above, NAD, sitting up in bed, pleasant, conversing easily Head: normocephalic, atraumatic Eyes: normal inspection, PERRL, conjunctivae normal, anicteric sclerae ENT: external ear and nose normal, oropharynx normal Neck: trachea midline, no thyromegaly normal visual inspection Respiratory: normal respiratory effort, lungs clear to auscultation, no wheeze, rales, rhonchi. Normal insp/exp effort, no accessory muscle use Cardiovascular: regular rate, rhythm, +systolic murmur, normal peripheral pulses, no BLE edema. Vessels: no JVD or carotid bruit Chest: normal inspection of chest Abdomen/GI: normal bowel sounds, soft, nontender, no hepatosplenomegaly Extremities/Musculoskeletal: no cyanosis or clubbing, extremities motor strength 5/5 Neurologic: PERRL, EOMI, accommodation nl, no face palsy, no dysarthria, CN's II-XI intact bilaterally and moves all extremities Psychiatric: A+Ox3, euthymic affect Skin: no rashes, normal color, warm/dry. + R forearm with healing incisions, s utures in place. No surrounding erythema or drainage Principal Diagnosis Gram-positive bacteremia Possible Prosthetic valve endocarditis Pulmonary hypertension Acute Kidney Injury Discharge Data Allergies Allergy/AdvReac Type Severity Reaction Status Date / Time Penicillins Allergy Unknown RASH FROM Verified 01/29/20 10:39 PCN; HAD KEFLEX W/O PROBLEM rifampin Allergy Unknown rash Unverified 01/29/20 10:39 ceftriaxone AdvReac Intermediate RASH AND Unverified 01/29/20 10:39 TINGLING BACK OF NECK HE WAS COMPLETING A 6 W Consultations 01/29/20 10:14 ED Decision to Admit Stat 01/29/20 12:10 Consult Cardiology Routine 01/29/20 13:46 Consult Infectious Diseases Routine 01/29/20 16:50 Burn CD for patient Routine Procedures Performed Operation Date: 01/31/20 07:15 Actual Procedures p Transesophageal Echo w/Anesthesia - Joel Lyons MD CXR: No active disease in the chest. Hospital Course (1) Gram-positive bacteremia: This is a 69yo M with PMH of bicuspid aortic valve s/p AVR complicated by endocarditis requiring repeat valve replacement, ascending aortic aneurysm, pulmonary hypertension, pulmonary embolism on coumadin, chronic HF with preserved EF, CKD III, h/o splenectomy and other medical problems listed below who presents with intermittent fever x 2 weeks and was found to have gram positive bacteremia and possible endocarditis. -Intermittent fever x2 weeks with T-max of 100.7 F. Treated with 7-day course doxycycline for sinusitis 1 week ago -Blood cultures ordered yesterday with preliminary gram-positive cocci, patient instructed to return to hospital for further treatment -Started empirically on ertapenem and vancomycin. Follow cultures. Telemedicine ID consult placed with [facility] ID -ED physician discussed with Dr. Lyons of [facility] cardiology due to concern for possible endocarditis, with history of AVR, endocarditis in the past. TTE performed, read pending (2) H/O aortic valve replacement: History of AVR in 2000 while living in [place], 2009 @ [facility] [place] after found to have flail leaflet , 2011 porcine valve @ [facility] [place] after endocarditis with vegetation -Follows with pricing director Dr. Luis in [place] (3) Pulmonary embolism on long-term anticoagulation therapy: Continue anticoagulation with coumadin. INR currently 2.5 (4) Acute kidney injury superimposed on chronic kidney disease: Creatinine elevated at 1.8 (baseline ~1.5) -Hold Bumex for today. Reassess volume status and renal function tomorrow (5) Pulmonary hypertension: Takes Adempas 2.5mg TID normally. Has not taken since last evening and medication is not on formulary -Will call to see if son can bring in today. Otherwise, will reach out to pulmonary service for further recommendation DVT Ppx: Coumadin Code status: FULL PCP: Lucas Nelson Dispo: Admit to PCU. Plan to return home once medically stable. Patient seen in collaboration with Dr. Flannery. Please see addendum. Discharge Plan Discharge Items Patient Disposition: Transfer Acute Care Hospital Reason For Visit: INFECTION Discharge Diagnosis: Gram-positive bacteremia Possible Prosthetic valve endocarditis Pulmonary hypertension Acute Kidney Injury Activity: Per Instructions section Exercise/Sports: Wait until after follow-up appointment Non-emergency contact: Primary Care Provider, Specialist and Demolition Expert Call non-emergency contact if: you have any medication questions, your symptoms worsen, your pain is not controlled, your pain is worsening, your pain is unusual for you, your pain is concerning for you and you have a fever Follow-up/Referrals: Lucas Nelson DO [Primary Care Provider] - Diet: Heart Healthy Addtl Attending Provider Instructions: Follow up with Dr.Irfan Joyner at [facility] for further evaluation and management. Pending Studies at Discharge: Yes Studies:: Blood Culture Stand-Alone Forms: My [facility] Skilled Items Patient informed of condition?: Yes DNR: No Discharge Level of Care: Other Communicable Disease: No Discharge Prognosis: Stable Lines: Peripheral IV Urinary Catheter: No Medications and DC Order Prescriptions: Continued metoprolol tartrate 100 mg tablet 100 mg PO BID RF: 0 lovastatin 40 mg tablet 40 mg PO HS RF: 0 temazepam 30 mg capsule 30 mg PO HS RF: 0 pantoprazole 40 mg tablet,delayed release (DR/EC) 40 mg PO QAM RF: 0 bumetanide 1 mg tablet 2 mg PO HS RF: 0 Hypercare 15 % (w/v) liquid 15 % TOPICAL HS RF: 0 Adempas 2.5 mg tablet 2.5 mg PO TID RF: 0 famotidine 40 mg tablet 40 mg PO HS RF: 0 diphenhydramine HCl [Allergy Relief(diphenhydramin)] 25 mg tablet 25 mg PO HS PRN (Reason: Allergy Symptoms) RF: 0 warfarin 5 mg tablet 2.5 mg PO TUTH@0800 RF: 0 warfarin 5 mg tablet 5 mg PO SUMOWEFRSA@0800 RF: 0 Discharge Orders: Discharge Order (Routine); Ordered 01/29/20 Ordered By: Sami Flannery Admission Data Admit Date/Time: 01/29/20 10:26 Attending Provider: Gertrude Diego Admit Provider: Gertrude Diego Primary Care Provider: Lucas Nelson Other Providers: Gertrude Diego ; Joel Lyons ; Jamar Raya ; Vidhya Mohan ; Benedicto Pepper I. ; Ministerio Lechuga II ; Angella Richey ; Aurelio Henry Supervising Physician Co-Signing Physician Notes Patient is a 69-year-old male with complex medical history, presents with history of fever associated with chills since 2 weeks duration. He recently completed doxycycline course for 7 days for sinusitis. He was evaluated in ED yesterday for flank pain and concern for appendicitis which was ruled out. Patient had gram-positive cocci in his blood cultures currently. Given history of aortic valve replacement, with gram-positive cocci blood cultures, patient is admitted for management of possible endocarditis. Patient denies any chest pain, shortness of breath, dizziness, nausea, abdominal pain currently. On exam patient is moderately built and nourished, no apparent distress, normocephalic atraumatic, lungs are clear to auscultation, S1, S2, systolic murmur, no pedal edema, abdomen soft, nontender, normal bowel sounds, grossly no focal neurologic deficits, right upper extremity sutures (from recent lipoma resection. Patient is admitted for management of gram-positive bacteremia. To rule out endoc arditis. Echo pending. Will start on broad-spectrum antibiotics including vancomycin, ertapenem. Consulted cardiology, ID. May need JO for further evaluation. Also noted KELBY on CKD. Will hold Bumex and give gentle fluids today. Monitor renal function, avoid nephrotoxic agents as able. Will repeat EKG in the morning to monitor for conduction problems. I personally reviewed the record. Patient is interviewed and examined at bedside. Patient's care is coordinated with Lorena Pepper PA-C. Please refer to the documentation above for details of patient's presentation and for discussion of other issues. Discussed case with both Dr. Thomas (OP embedded nurse) and Dr. Whyte, who both recommend transfer to tertiary care setting due to pulmonary HTN, missed doses fo Adempas and concern for decompensation in setting of gram positive bacteremia and possible infectious endocarditis.
[2020-01-29] MEDS: FAMOTIDINE 40 MG TABLET PO SCH (20:38)
[2020-01-29] MEDS: METOPROLOL TARTRATE 100 MG TAB PO SCH (20:39)
[2020-01-29] MEDS: LOVASTATIN 20 MG TAB PO SCH (20:39)
[2020-01-29] MEDS ORDERED: BUMETANIDE 1 MG TAB PO SCH (21:00)
[2020-01-29] MEDS ORDERED: RIOCIGUAT 2.5 MG PO SCH (21:00)
[2020-01-29] MEDS ORDERED: TEMAZEPAM 15 MG CAPSULE PO SCH (21:00)
[2020-01-29] MEDS ORDERED: Nursing to Pharmacy Communication SCH (22:30)
[2020-01-29] MEDS: ADEMPAS PO SCH (23:39)
[2020-01-29] MEDS: TEMAZEPAM 15 MG CAPSULE PO SCH (23:39)
[2020-01-30] MEDS ORDERED: SODIUM CHLORIDE 0.9% 500 ML IV SCH (03:45)
[2020-01-30] MEDS ORDERED: VANCOMYCIN HCL 1,250 MG in SODIUM CHLORIDE 0.9% 250 ML IV SCH (04:00)
[2020-01-30] MEDS: SODIUM CHLORIDE 0.9% 1000ML 1,000 ML IV SCH ×2 (04:01→13:18)
[2020-01-30 06:56] LABS: Hemoglobin 15.6 g/dL (14.0-18.0); Mean Corpuscular Hemoglobin 32.3 pg (25-34); Mean Corpuscular Hgb Conc 33.9 g/dL (32-36); Mean Corpuscular Volume 95.2 fL (80-100); Mean Platelet Volume 10.4 fL (7.4-10.4); Platelet Count 206 K/uL (130-400); RDW Coefficient of Variation 16.4 % (11.5-14.5); RDW Standard Deviation 56.8 fL (36.4-46.3); Red Blood Count 4.83 M/uL (4.7-6.1)
[2020-01-30 07:09] LABS: Prothrombin Time 19.9 Seconds (9.0-12.0)
[2020-01-30 07:34] LABS: BUN Creatinine Ratio 18.7 (10-20); Calcium 7.4 mg/dl (8.5-10.1); Creatinine Clr Calc Pharmacy 66.4 ml/min; Est GFR (African American) 81.9; Est GFR (Non-African American) 70.6; Magnesium 2.3 mg/dl (1.8-2.4); Potassium 3.7 mmol/L (3.5-5.1)
[2020-01-30] MEDS: ASPIRIN 81 MG ECTAB PO SCH (07:36)
[2020-01-30] MEDS: PANTOprazole 40 MG TAB PO SCH (07:36)
[2020-01-30] MEDS: METOPROLOL TARTRATE 100 MG TAB PO SCH ×2 (07:36→20:28)
[2020-01-30] MEDS: ADEMPAS PO SCH ×3 (07:37→20:29)
[2020-01-30] MEDS: ERTAPENEM SODIUM 1,000 MG in SODIUM CHLORIDE 0.9% 50 ML IV SCH (10:00)
--- NOTE | 2020-01-30 10:59 | Pharmacy Report ---
Pharmacy Abx Initial Consult - Date of Service January 30, 2020 - Pharmacy Dosing Scope Date of Consult: 01/29/20 Consultation requested by: Lorena Pepper PA-C Pharmacy is consulted to initiate Vancomycin IV dosing therapy, order appropriate labs and adjust drug dose/frequency. - Subjective The patient is a 69 year old M admitted on 01/29/20 10:26. - Objective Height: 5 ft 9 in Weight: 79.4 kg Vital Signs (Past 12hrs): Vital Signs Temp Pulse Pulse Resp BP Pulse Ox Pulse Ox 01/30/20 08:00 78 98 01/30/20 07:56 36.9 C 69 18 90/53 L 98 01/30/20 04:18 97/64 L 01/30/20 03:43 96/49 L 01/30/20 03:15 36.5 C 62 18 77/31 L 98 01/29/20 23:59 71 01/29/20 23:15 36.5 C 66 18 110/70 94 Lab Results (24hrs): Laboratory Tests (24 Hours) 01/30/20 01/30/20 06:23 06:23 WBC 8.10 Creatinine 1.08 Est Cr Clr Drug Dosing 66.4 - Risk Factors for Resistance * Antimicrobial use within the last 90 days - Doxycycline PO x 1 week early January 2020. - Assessment & Plan Assessment 69 year old M with history of AVR and endocarditis currently admitted for G positive bacteremia and suspected Endocarditis. Patient was started Vancomycin + Invanz yesterday. Vancomycin dose started at 16 mg/kg IV q24h for Scr = 1.83, Crcl = 39. Today renal function improved with Crcl = 66. Vanc dosing frequency was therefore increased. Plan Vancomycin IV * Estimated PK Parameters: Vd 0.7 L/kg, Nabeel 0.059 hr-1, t1/2 11.7 hr * Loading dose: 2000 mg (25 mg/kg) IV x 1 dose given yesterday AM. * Maintenance dose: 1250 mg IV (16 mg/kg) every 12 hours. First dose given at 0400 AM today. * Goal trough level for Endocarditis: 18 to 20 mcg/mL * Trough Vanc level ordered for 1600 01/31/20 after 3 maintenance doses for steady state level. Pharmacy will continue to follow and will adjust dose/frequency as necessary. Thank you.
--- NOTE | 2020-01-30 12:04 | Hospitalist Progress Note ---
Date of Service January 30, 2020 Assessment & Plan (1) Gram-positive bacteremia: This is a 69yo M with PMH of bicuspid aortic valve s/p AVR complicated by endocarditis requiring repeat valve replacement, ascending aortic aneurysm, pulmonary hypertension, pulmonary embolism on coumadin, chronic HF with preserved EF, CKD III, h/o splenectomy and other medical problems listed below who presents with intermittent fever x 2 weeks and was found to have gram positive bacteremia and possible endocarditis. -Intermittent fever x2 weeks with T-max of 100.7 F. Treated with 7-day course doxycycline for sinusitis 1 week ago -Blood cultures (01/28/20) with preliminary gram-positive cocci, patient in structed to return to hospital for further treatment, positive for alpha strep not pneumoniae -Repeat blood cultures (01/29/20) on admission, positive x2 for alpha strep not pneumoniae -Started empirically on ertapenem and vancomycin, will continue. Follow cultures. Telemedicine ID consult placed with [place] [facility] -ED physician discussed with Dr. Lyons of [facility] cardiology due to concern for possible endocarditis, with history of AVR, endocarditis in the past. 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 Luis in [place] (3) Pulmonary embolism on long-term anticoagulation therapy: Continue anticoagulation with coumadin. INR currently 2.5 (4) Acute kidney injury superimposed on chronic kidney disease: Creatinine elevated at 1.8 (baseline ~1.5) -Hold Bumex for today. Reassess volume status and renal function -Creatinine down to 1.08 (5) Pulmonary hypertension: Takes Adempas 2.5mg TID normally. Has not taken since last evening and medication is not on formulary -Will call to see if son can bring in today. Otherwise, will reach out to pulmonary service for further recommendation Patient's family brought the medication in, will continue DVT Ppx: Coumadin Code status: FULL PCP: Lucas Nelson Dispo: Admit to PCU. Plan to return home once medically stable. Admission and Anticipated Discharge Date Admission Date: January 29, 2020 Subjective No acute events overnight. Admitting physician discussed with the patient possible transfer, after discussing with asphalt engineer. Patient declined transfer. He is currently lying in bed, in no acute distress, states that infectious disease consultation from [facility] was done by iPad yesterday. At this time he continues to state that he does not want to be transferred. Blood cultures persistently positive. For now continue IV antibiotics, await ID recommendations. Patient currently denies any chest pain, shortness of breath, abdominal pain, nausea or vomiting. He is ambulating without difficulty. He denies any dizziness or lightheadedness. Says that he feels more feverish today. Appetite is okay for now. Review of Systems Review of Systems: All systems reviewed & are unremarkable except as noted in HPI & below Constitutional: + fever and + chills Respiratory: no cough and no dyspnea Cardiovascular: no chest pain and no palpitations Gastrointestinal: no abdominal pain, no nausea and no vomiting Physical Exam Physical Exam: General Appearance: WD/WN, vitals as above, NAD, sitting up in bed, pleasant, conversing easily Head: normocephalic, atraumatic Eyes: normal inspection, PERRL, EOMI, conjunctivae normal, anicteric sclerae ENT: external ear and nose normal, oropharynx normal Neck: trachea midline, no thyromegaly normal visual inspection Respiratory: normal respiratory effort, lungs clear to auscultation, no wheeze, rales, rhonchi. Normal insp/exp effort, no accessory muscle use Cardiovascular: regular rate, rhythm, + 2-3/6 systolic murmur, normal peripheral pulses, no BLE edema. Vessels: no JVD or carotid bruit Chest: normal inspection of chest Abdomen/GI: normal bowel sounds, soft, nontender, nondistended Extremities/Musculoskeletal: no cyanosis or clubbing, extremities motor strength 5/5 Neurologic: PERRL, EOMI, no face palsy, no dysarthria, CN's II-XI intact bilaterally and moves all extremities Psychiatric: A+Ox3, euthymic affect Skin: no rashes, normal color, warm/dry. + R forearm with healing incisions, sutures in place. No surrounding erythema or drainage Results & Data Results & Data ([facility]) Vital Signs (Past 12 Hours) Vital Signs Temp Pulse Pulse Resp BP Pulse Ox Pulse Ox 01/30/20 11:49 36.5 C 72 20 94/49 L 99 07/15/20 08:00 78 98 01/30/20 07:56 36.9 C 69 18 90/53 L 98 01/30/20 04:18 97/64 L 01/30/20 03:43 96/49 L 01/30/20 03:15 36.5 C 62 18 77/31 L 98 Laboratory Results 01/30/20 01/30/20 01/30/20 Range/Units 06:23 06:23 06:23 WBC 8.10 (4.8-10.8) K/uL RBC 4.83 (4.7-6.1) M/uL Hgb 15.6 (14.0-18.0) g/dL Hct 46.0 (42-52) % MCV 95.2 (80-100) fL MCH 32.3 (25-34) pg MCHC 33.9 (32-36) g/dL RDW Std Deviation 56.8 H (36.4-46.3) fL RDW Coeff of Gely 16.4 H (11.5-14.5) % Plt Count 206 (130-400) K/uL MPV 10.4 (7.4-10.4) fL PT 19.9 H (9.0-12.0) Seconds INR 2.0 H (0.9-1.1) Sodium 141 (136-145) mmol/L Potassium 3.7 (3.5-5.1) mmol/L Chloride 112 H (98-107) mmol/L Carbon Dioxide 24 (21-32) mmol/L Anion Gap 5.0 (3-11) BUN 20 H (7-18) mg/dl Creatinine 1.08 (0.6-1.4) mg/dl Est Cr Clr Drug Dosing 66.4 ml/min Est GFR ( Amer) 81.9 Est GFR (Non-Af Amer) 70.6 BUN/Creatinine Ratio 18.7 (10-20) Glucose 88 (70-99) mg/dl Calcium 7.4 L (8.5-10.1) mg/dl Magnesium 2.3 (1.8-2.4) mg/dl Urine Color Urine Appearance (Clear) Urine pH (4.5-7.5) Ur Specific [place] (1.000-1.030) Urine Protein (Negative) Urine Glucose (UA) (Negative) Urine Ketones (Negative) Urine Blood (Negative) Urine Nitrite (Negative) Urine Bilirubin (Negative) Urine Urobilinogen (Negative) Ur Leukocyte Esterase (Negative) Urine WBC (Auto) (0-5) /hpf Urine RBC (Auto) (0-4) /hpf U Hyaline Cast (Auto) (0-5) /lpf U Epithel Cells (Auto) (0-5) /lpf Urine Bacteria (Auto) (Negative) 01/29/20 Range/Units 12:05 WBC (4.8-10.8) K/uL RBC (4.7-6.1) M/uL Hgb (14.0-18.0) g/dL Hct (42-52) % MCV (80-100) fL MCH (25-34) pg MCHC (32-36) g/dL RDW Std Deviation (36.4-46.3) fL RDW Coeff of Gely (11.5-14.5) % Plt Count (130-400) K/uL MPV (7.4-10.4) fL PT (9.0-12.0) Seconds INR (0.9-1.1) Sodium (136-145) mmol/L Potassium (3.5-5.1) mmol/L Chloride (98-107) mmol/L Carbon Dioxide (21-32) mmol/L Anion Gap (3-11) BUN (7-18) mg/dl Creatinine (0.6-1.4) mg/dl Est Cr Clr Drug Dosing ml/min Est GFR ( Amer) Est GFR (Non-Af Amer) BUN/Creatinine Ratio (10-20) Glucose (70-99) mg/dl Calcium (8.5-10.1) mg/dl Magnesium (1.8-2.4) mg/dl Urine Color Dark Yellow Urine Appearance Clear (Clear) Urine pH 5.5 (4.5-7.5) Ur Specific [place] 1.021 (1.000-1.030) Urine Protein Trace H (Negative) Urine Glucose (UA) Negative (Negative) Urine Ketones Trace H (Negative) Urine Blood Trace H (Negative) Urine Nitrite Negative (Negative) Urine Bilirubin Negative (Negative) Urine Urobilinogen Negative (Negative) Ur Leukocyte Esterase Negative (Negative) Urine WBC (Auto) 1-5 (0-5) /hpf Urine RBC (Auto) 0-4 (0-4) /hpf U Hyaline Cast (Auto) 1-5 (0-5) /lpf U Epithel Cells (Auto) 5-10 H (0-5) /lpf Urine Bacteria (Auto) Negative (Negative) Medications Administered Current Inpatient Medications Acetaminophen (Tylenol) 650 mg PO Q4H PRN PRN Reason: Pain or Fever Stop: 02/28/20 12:09 Aspirin (Ecotrin Ectab) 81 mg PO QAM [facility] Stop: 02/29/20 08:59 Last Admin: 01/30/20 07:36 Dose: 81 mg Documented by: Bumetanide (Bumex) 2 mg PO HS ANTHONY Stop: 02/28/20 20:59 Last Admin: 01/29/20 22:47 Dose: Not Given Documented by: Diphenhydramine HCl (Benadryl Capsule) 25 mg PO HS PRN PRN Reason: Sleep Stop: 02/28/20 16:38 Famotidine (Pepcid) 40 mg PO HS [facility] Stop: 02/28/20 20:59 Last Admin: 01/29/20 20:38 Dose: 40 mg Documented by: Ertapenem 1,000 mg/ Sodium (Chloride) 60 mls @ 100 mls/hr IV Q24H [facility] Stop: 03/11/20 09:59 Last Admin: 01/30/20 10:00 Dose: 100 mls/hr Documented by: Sodium Chloride (Nss 1000ml) 1,000 mls @ 100 mls/hr IV .Q10H [facility] Stop: 02/29/20 03:44 Last Admin: 01/30/20 04:01 Dose: 100 mls/hr Documented by: Vancomycin HCl 1,250 mg/ (Sodium Chloride) 275 mls @ 125 mls/hr IV Q12H [facility]; Protocol Stop: 02/12/20 15:59 Lovastatin (Mevacor) 40 mg PO HS [facility] Stop: 02/28/20 20:59 Last Admin: 01/29/20 20:39 Dose: 40 mg Documented by: Metoprolol Tartrate (Lopressor) 100 mg PO BID [facility] Stop: 02/28/20 20:59 Last Admin: 01/30/20 07:36 Dose: 100 mg Documented by: Miscellaneous Information (Consult) 1 ea N/A UD PRN PRN Reason: Consult Stop: 02/28/20 13:30 Miscellaneous Information (Pharmacy Consult) 1 ea N/A UD PRN PRN Reason: Consult Stop: 02/28/20 16:41 Adempas: Non- Formulary Patient's Own Med 1 ea PO TID [facility] Stop: 02/28/20 20:59 Last Admin: 01/30/20 07:37 Dose: 1 cap Documented by: Pantoprazole Sodium (Protonix) 40 mg PO QAM [facility] Stop: 02/29/20 08:59 Last Admin: 01/30/20 07:36 Dose: 40 mg Documented by: Polyethylene Glycol (Miralax Powder Packet) 17 gm PO DAILY PRN PRN Reason: Constipation Stop: 02/28/20 12:09 Temazepam (Restoril) 30 mg PO DAILY@2300 [facility] Stop: 02/28/20 22:59 Last Admin: 01/29/20 23:39 Dose: 30 mg Documented by: Warfarin Sodium (Coumadin) 2.5 mg PO TuTh@1600 [facility] Stop: 03/01/20 15:59 Warfarin Sodium (Coumadin) 5 mg PO SuMoWeFrSa@1600 [facility] Stop: 02/29/20 15:59
[2020-01-30] MEDS ORDERED: POTASSIUM CHLORIDE 20 MEQ TABCR PO STA (13:32)
[2020-01-30] MEDS ORDERED: VANCOMYCIN TROUGH ONE (15:30)
--- NOTE | 2020-01-30 16:09 | Cardiology Progress Note ---
Date of Service January 30, 2020 Assessment & Plan (1) Gram-positive bacteremia: (2) Fever: (3) Prosthetic valve endocarditis: (4) Ascending aortic aneurysm: (5) Pulmonary hypertension: (6) Pulmonary embolism on long-term anticoagulation therapy: (7) Acute kidney injury superimposed on chronic kidney disease: Patient is a 69-year-old male with complex history as outlined with 2 prior episodes of prosthetic valve endocarditis, last episode 2011 presents now with several week history of persistent febrile complaints and malaise. Blood cultures drawn yesterday are promptly growing gram-positive cocci in chains on both sets. Findings are presumptive of recurrent prosthetic valve recurrent endocarditis. Patient was begun on antibiotics in ER and repeat blood cultures drawn. Physical examination and history are not notable for signs or symptoms of thromboembolic disease, heart failure or conduction system disease. Preliminary review of echocardiogram appears similar to prior study of October 2019 by report and no visualized mobile vegetation No current findings suggest need for urgent or early valve replacement on patient with 3 prior valve replacements and underlying pulmonary hypertension reflecting high surgical risk Plan: Once again discussed management in detail the patient he declines referral to tertiary care center and wishes initial conservative medical therapies. No current indications for JO without evidence of abscess or vegetation or embolic phenomena. Patient would be high risk for conscious sedation/anesthesia given marked pulmonary hypertension. Blood cultures growing alpha strep suggesting favorable approach to conservative antibiotic therapy We will repeat EKG and echocardiogram serially We will follow closely during hospitalization Subjective Patient seen and examined, chart, medications, telemetry reviewed. Feels improved since hospitalization no longer febrile. Slept well last night. No chest pains or worsening shortness of breath. Physical Exam Constitutional: WD/WN, vitals as above no acute distress Eyes: PERRL, conjunctivae normal, anicteric sclerae ENMT: external ear and nose normal, oropharynx normal Neck: trachea midline, no thyromegaly Respiratory: Auscultation: + diminished lung sounds (Clear to auscultation) Cardiovascular: Rate/Rhythm: regular rate and regular rhythm Heart Sounds: normal S1 and normal S2; no gallop and no murmur (Harsh grade 2/6 to 3/6 systolic murmur less than grade 1/6 diastolic murmur) Palpation: normal PMI Vessels: normal carotid upstroke and radial pulses present; no JVD and no carotid bruit Extremities: no edema Gastrointestinal (Abdomen): normal bowel sounds, soft, nontender, no hepatosplenomegaly Musculoskeletal: no cyanosis or clubbing, extremities motor strength 5/5 Skin: no rashes, warm and dry Neurologic: PERRL, EOMI, accommodation nl, no face palsy, no dysarthria Psychiatric: A+Ox3, euthymic affect Results & Data Vital Signs (Past 12 Hours) Vital Signs Temp Pulse Pulse Resp BP Pulse Ox Pulse Ox 01/30/20 15:49 37.0 C 76 18 92/52 L 95 01/30/20 11:49 36.5 C 72 20 94/49 L 99 01/30/20 08:00 78 98 01/30/20 07:56 36.9 C 69 18 90/53 L 98 01/30/20 04:18 97/64 L Laboratory Results Laboratory Results - last 24 hr 01/30/20 01/30/20 01/30/20 06:23 06:23 06:23 WBC 8.10 RBC 4.83 Hgb 15.6 Hct 46.0 MCV 95.2 MCH 32.3 MCHC 33.9 RDW Std Deviation 56.8 H RDW Coeff of Gely 16.4 H Plt Count 206 MPV 10.4 PT 19.9 H INR 2.0 H Sodium 141 Potassium 3.7 Chloride 112 H Carbon Dioxide 24 Anion Gap 5.0 BUN 20 H Creatinine 1.08 Est Cr Clr Drug Dosing 66.4 Est GFR ( Amer) 81.9 Est GFR (Non-Af Amer) 70.6 BUN/Creatinine Ratio 18.7 Glucose 88 Calcium 7.4 L Magnesium 2.3
--- NOTE | 2020-01-30 17:20 | Anesthesiology Consultation ---
Date of Service January 30, 2020 Assessment & Plan (1) Encounter for pre-operative examination: Chart Review Chart Review: Pending: Refer to Additional Notes / Consult section and Patient NOT seen in Pre Admission Testing See below for most recent cardiology assessment. I would agree that patient is a high risk candidate for sedation given his severe pulmonary hypertension. With sedation, if he became hypercarbic this could potentially worsen the pulmonary hypertension and lead to right heart failure. If his JO was deemed absolutely necessary, would likely need to consider topicalizing his airway with local anesthetic and giving very minimal if any sedation. This would allow for better CO2 exchange. Consults Requested none Per cardiology: "Once again discussed management in detail the patient he declines referral to tertiary care center and wishes initial conservative medical therapies. No current indications for JO without evidence of abscess or vegetation or embolic phenomena. Patient would be high risk for conscious sedation/anesthesia given marked pulmonary hypertension. Blood cultures growing alpha strep suggesting favorable approach to conservative antibiotic therapy We will repeat EKG and echocardiogram serially" History Surgery Operation Date: 01/31/20 07:15 Proposed Procedures p Cardioversion w/Anesthesia Sedation - Joel Lyons MD Height/Weight Height: 5 ft 9 in Weight: 79.4 kg Allergies Allergy/AdvReac Type Severity Reaction Status Date / Time Penicillins Allergy Unknown RASH FROM Verified 01/29/20 10:39 PCN; HAD KEFLEX W/O PROBLEM rifampin Allergy Unknown rash Unverified 01/29/20 10:39 ceftriaxone AdvReac Intermediate RASH AND Unverified 01/29/20 10:39 TINGLING BACK OF NECK HE WAS COMPLETING A 6 W Medications Home Medications Medication Instructions Recorded Confirmed Last Taken aluminum chloride [Hypercare] 15 % TOPICAL 01/28/20 01/29/20 Unknown bumetanide 2 mg PO 01/28/20 01/29/20 01/28/20 lovastatin 40 mg PO 01/28/20 01/29/20 01/28/20 metoprolol tartrate 100 mg PO BID 01/28/20 01/29/20 01/29/20 pantoprazole 40 mg PO QAM 01/28/20 01/29/20 01/29/20 riociguat [Adempas] 2.5 mg PO TID 01/28/20 01/29/20 01/28/20 temazepam 30 mg PO 07/01/29/20 01/28/20 diphenhydramine HCl [Allergy 25 mg PO HS PRN 01/29/20 01/29/20 01/26/20 Relief(diphenhydramin)] famotidine 40 mg PO HS 01/29/20 01/29/20 01/28/20 warfarin 2.5 mg PO TUTH@0800 01/29/20 01/29/20 01/29/20 08:00 warfarin 5 mg PO SUMOWEFRSA@0800 01/29/20 01/29/20 01/28/20 Active Medications Generic Name Dose Route Start Last Admin Trade Name Freq PRN Reason Stop Dose Admin Aspirin 81 mg 01/30/20 09:00 01/30/20 07:36 Ecotrin Ectab PO 02/29/20 08:59 81 mg QAM ANTHONY Administration Bumetanide 2 mg 01/29/20 21:00 01/29/20 22:47 Bumex PO 02/28/20 20:59 Not Given HS ANTHONY Famotidine 40 mg 01/29/20 21:00 01/29/20 20:38 Pepcid PO 02/28/20 20:59 40 mg HS ANTHONY Administration Ertapenem 1,000 mg/ Sodium 60 mls @ 100 mls/hr 01/30/20 10:00 01/30/20 10:36 Chloride IV 03/11/20 09:59 Infused Q24H ANTHONY Infusion Sodium Chloride 1,000 mls @ 100 mls/hr 01/30/20 03:45 01/30/20 14:32 Nss 1000ml IV 02/29/20 03:44 0 mls/hr .Q10H ANTHONY Infusion Lovastatin 40 mg 01/29/20 21:00 01/29/20 20:39 Mevacor PO 02/28/20 20:59 40 mg HS ANTHONY Administration Metoprolol Tartrate 100 mg 01/29/20 21:00 01/30/20 07:36 Lopressor PO 02/28/20 20:59 100 mg BID ANTHONY Administration Adempas: Non- 1 ea 01/29/20 21:00 01/30/20 13:52 Formulary Patient's PO 02/28/20 20:59 1 cap Own Med TID ANTHONY Administration Pantoprazole Sodium 40 mg 01/30/20 09:00 01/30/20 07:36 Protonix PO 02/29/20 08:59 40 mg QAM ANTHONY Administration Temazepam 30 mg 01/29/20 23:00 01/29/20 23:39 Restoril PO 02/28/20 22:59 30 mg DAILY@2300 ANTHONY Administration Past Medical History Medical History Ascending aortic aneurysm Chronic diastolic heart failure CKD (chronic kidney disease), stage III History of endocarditis Hypertension Pulmonary embolism on long-term anticoagulation therapy Pulmonary hypertension Past Family History Family History Other Hypertension Past Surgical History Surgical History H/O aortic valve replacement 1999 while living in [place], [address] [facility] after found to have flail leaflet , [address] [facility] [place] after endocarditis with vegetation H/O parathyroidectomy History of embolectomy Hx of splenectomy Social History Smoking Status: Former smoker Hx Alcohol Use: Yes Hx Substance Use: No Physical Exam Vital Signs Last Vital Signs Temp 37.0 C 01/30/20 15:49 Pulse 76 01/30/20 15:49 Resp 18 01/30/20 15:49 BP 92/52 L 01/30/20 15:49 Pulse Ox 95 01/30/20 15:49 Testing Laboratory Results 01/30/20 06:23 01/30/20 06:23 PT 19.9 Seconds (9.0-12.0) H 01/30/20 06:23 INR 2.0 (0.9-1.1) H 01/30/20 06:23 APTT 38.1 Seconds (21.0-31.0) H 01/29/20 09:20 Urine Color Dark Yellow 01/29/20 12:05 Urine Appearance Clear (Clear) 01/29/20 12:05 Urine pH 5.5 (4.5-7.5) 01/29/20 12:05 Ur Specific [place] 1.021 (1.000-1.030) 01/29/20 12:05 Urine Protein Trace (Negative) H 01/29/20 12:05 Urine Glucose (UA) Negative (Negative) 01/29/20 12:05 Urine Ketones Trace (Negative) H 01/29/20 12:05 Urine Nitrite Negative (Negative) 01/29/20 12:05 Ur Leukocyte Esterase Negative (Negative) 01/29/20 12:05 Urine WBC (Auto) 1-5 /hpf (0-5) 01/29/20 12:05 Urine RBC (Auto) 0-4 /hpf (0-4) 01/29/20 12:05 U Hyaline Cast (Auto) 1-5 /lpf (0-5) 01/29/20 12:05 U Epithel Cells (Auto) 5-10 /lpf (0-5) H 01/29/20 12:05 Urine Bacteria (Auto) Negative (Negative) 01/29/20 12:05 01/29/20 09:20 Aerobic Blood Culture - Preliminary Blood Alpha strep not S.pne/enteroco Anaerobic Blood Culture - Preliminary Alpha strep not S.pne/enteroco 01/29/20 09:15 Aerobic Blood Culture - Preliminary Blood Alpha strep. not pneumoniae Anaerobic Blood Culture - Preliminary Alpha strep. not pneumoniae Electrocardiogram Date: 01/30/20 Findings: + NSR @ (62) Sinus rhythm with occasional Premature ventricular complexes Otherwise normal ECG When compared with ECG of 29-JAN-2020 09:22, T wave inversion now evident in Inferior leads Chest X-Ray Date: 01/29/20 XR chest 1V portable CLINICAL HISTORY: SEPSIS COMPARISON STUDY: 06/03/2009 FINDINGS: There are postsurgical changes of a midline sternotomy. There is no failure. There is no focal pulmonary consolidation. There are no pleural effusions.[ IMPRESSION: No active disease in the chest Echocardiogram Date: 01/29/20 EF: 65% LV Function: normal Severe pulmonary hypertension. RV systolic pressure greater than 70mmHg. MODERATE ENLARGEMENT OF ASCENDING AORTA 4.5CM.
[2020-01-30] MEDS: VANCOMYCIN HCL 1,250 MG in SODIUM CHLORIDE 0.9% 250 ML IV SCH (17:53)
[2020-01-30] MEDS: WARFARIN SOD 5 MG TAB PO SCH (17:54)
--- NOTE | 2020-01-30 19:18 | Electrocardiogram Report ---
Test Reason : Blood Pressure : / mmHG Vent. Rate : 062 BPM Atrial Rate : 062 BPM P-R Int : 154 ms QRS Dur : 094 ms QT Int : 430 ms P-R-T Axes : 070 -02 -17 degrees QTc Int : 436 ms Sinus rhythm with occasional Premature ventricular complexes Nonspecific ST abnormality Otherwise normal ECG When compared with ECG of 29-JAN-2020 09:22, T wave inversion now evident in Inferior leads Confirmed by Norbert Vega ([id number]) on 01/30/2020 7:18:13 PM Referred By: REFERRED SELF Confirmed By:Damián Vega
[2020-01-30] MEDS: FAMOTIDINE 40 MG TABLET PO SCH (20:28)
[2020-01-30] MEDS: LOVASTATIN 20 MG TAB PO SCH (20:29)
[2020-01-30] MEDS: TEMAZEPAM 15 MG CAPSULE PO SCH (23:09)
[2020-01-31] MEDS: VANCOMYCIN HCL 1,250 MG in SODIUM CHLORIDE 0.9% 250 ML IV SCH ×3 (03:24→17:06)
[2020-01-31 06:43] LABS: Hematocrit (blood only) 44.7 % (42-52); Hemoglobin 15.2 g/dL (14.0-18.0); Mean Corpuscular Hemoglobin 32.8 pg (25-34); Mean Corpuscular Volume 96.3 fL (80-100); Mean Platelet Volume 10.2 fL (7.4-10.4); Platelet Count 181 K/uL (130-400); RDW Coefficient of Variation 16.4 % (11.5-14.5); RDW Standard Deviation 56.8 fL (36.4-46.3); Red Blood Count 4.64 M/uL (4.7-6.1); White Blood Count 8.67 K/uL (4.8-10.8)
[2020-01-31 06:51] LABS: INR 1.7 (0.9-1.1); Prothrombin Time 17.3 Seconds (9.0-12.0)
[2020-01-31 06:58] LABS: BUN Creatinine Ratio 17.6 (10-20); Calcium 7.5 mg/dl (8.5-10.1); Creatinine Clr Calc Pharmacy 83.4 ml/min; Est GFR (Non-African American) 89.7; Magnesium 2.3 mg/dl (1.8-2.4); Phosphorus 1.9 mg/dl (2.5-4.9); Potassium 4.6 mmol/L (3.5-5.1)
[2020-01-31] MEDS: ASPIRIN 81 MG ECTAB PO SCH (08:26)
[2020-01-31] MEDS: PANTOprazole 40 MG TAB PO SCH (08:26)
[2020-01-31] MEDS: METOPROLOL TARTRATE 100 MG TAB PO SCH ×2 (08:27→20:46)
[2020-01-31] MEDS: ADEMPAS PO SCH ×3 (08:27→20:47)
[2020-01-31] MEDS: ERTAPENEM SODIUM 1,000 MG in SODIUM CHLORIDE 0.9% 50 ML IV SCH (09:56)
--- NOTE | 2020-01-31 10:40 | Hospitalist Progress Note ---
Date of Service January 31, 2020 Assessment & Plan (1) Gram-positive bacteremia: This is a 69yo M with PMH of bicuspid aortic valve s/p AVR complicated by endocarditis requiring repeat valve replacement, ascending aortic aneurysm, pulmonary hypertension, pulmonary embolism on coumadin, chronic HF with preserved EF, CKD III, h/o splenectomy and other medical problems listed below who presents with intermittent fever x 2 weeks and was found to have gram positive bacteremia and possible endocarditis. -Intermittent fever x2 weeks with T-max of 100.7 F. Treated with 7-day course doxycycline for sinusitis 1 week ago -Blood cultures (01/28/20) with preliminary gram-positive cocci, patient in structed to return to hospital for further treatment, positive for strep mitis -Repeat blood cultures (01/29/20) on admission, positive x2 for alpha strep mitis -Started empirically on ertapenem and vancomycin, will continue. Follow cultures. Telemedicine ID consult placed with [facility], recommend to continue vancomycin, ertapenem discontinued -ED physician discussed with Dr. Lyons of [facility] cardiology due to concern for possible endocarditis, with history of AVR, endocarditis in the past. TTE performed -Preliminary review of echocardiogram appears similar to prior study of October 2019 by report and no visualized mobile vegetation No current findings suggest need for urgent or early valve replacement on patient with 3 prior valve replacements and underlying pulmonary hypertension reflecting high surgical risk Transesophageal echocardiogram not performed, elevated risk with severe pulmonary hypertension and ultimate goal per patient's wishes to avoid further surgical intervention unless absolutely indicated No visualized vegetations or change in valve function on transthoracic study Cardiology continues to follow (2) H/O aortic valve replacement: History of AVR in 2000 while living in [place], [place] [facility] [place] to have flail leaflet , 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 Luis in [place] (3) Pulmonary embolism on long-term anticoagulation therapy: Continue anticoagulation with coumadin. INR goal 2-3 (4) Acute kidney injury superimposed on chronic kidney disease: Creatinine elevated at 1.8 (baseline ~1.5) -Hold Bumex for today. Reassess volume status and renal function -Creatinine down to ~ 1 (5) Pulmonary hypertension: Takes Adempas 2.5mg TID normally. medication is not on formulary Patient's family brought the medication in, will continue Reached out to pulmonary service for further recommendation by admitting physician, tip scourer recommended transfer to tertiary center given his severe pulmonary hypertension, patient declined transfer. Even after further discussion, patient does not wish to be transferred. DVT Ppx: Coumadin Code status: FULL PCP: Lucas Nelson Dispo: Admit to PCU. Plan to return home once medically stable. Admission and Anticipated Discharge Date Admission Date: January 29, 2020 Subjective Patient is sitting up in bed, states that he feels much better now. Denies any fevers or chills, chest pain, shortness of breath. He is having bowel movements and inquires about probiotics. Will start probiotics. Blood cultures positive for strep, will stop ertapenem. Review of Systems Review of Systems: All systems reviewed & are unremarkable except as noted in HPI & below Constitutional: no fever and no chills Respiratory: no cough and no dyspnea Cardiovascular: no chest pain and no palpitations Gastrointestinal: no abdominal pain, no nausea and no vomiting Physical Exam Physical Exam: General Appearance: WD/WN, vitals as above, NAD, sitting up in bed, pleasant, conversing easily Head: normocephalic, atraumatic Eyes: normal inspection, PERRL, EOMI, conjunctivae normal, anicteric sclerae ENT: external ear and nose normal, oropharynx normal Neck: trachea midline, no thyromegaly normal visual inspection Respiratory: normal respiratory effort, lungs clear to auscultation, no wheeze, rales, rhonchi. Normal insp/exp effort, no accessory muscle use Cardiovascular: regular rate, rhythm, + 2-3/6 systolic murmur, normal peripheral pulses, no BLE edema. Vessels: no JVD or carotid bruit Chest: normal inspection of chest Abdomen/GI: normal bowel sounds, soft, nontender, nondistended Extremities/Musculoskeletal: no cyanosis or clubbing, extremities motor strength 5/5 Neurologic: PERRL, EOMI, no face palsy, no dysarthria, CN's II-XI intact bilaterally and moves all extremities Psychiatric: A+Ox3, euthymic affect Skin: no rashes, normal color, warm/dry. + R forearm with healing incisions, sutures in place. No surrounding erythema or drainage Results & Data Results & Data ([facility]) Vital Signs (Past 12 Hours) Vital Signs Temp Pulse Pulse Resp BP Pulse Ox 01/31/20 08:00 57 L 07/16/20 07:38 36.4 C L 63 16 131/76 95 01/31/20 04:26 36.5 C 66 18 111/67 92 01/31/20 00:02 116/71 01/30/20 23:58 36.9 C 95 H 16 83/53 L 90 01/30/20 23:54 64 Laboratory Results 01/31/20 01/31/20 01/31/20 Range/Units 06:03 06:03 06:03 WBC 8.67 (4.8-10.8) K/uL RBC 4.64 L (4.7-6.1) M/uL Hgb 15.2 (14.0-18.0) g/dL Hct 44.7 (42-52) % MCV 96.3 (80-100) fL MCH 32.8 (25-34) pg MCHC 34.0 (32-36) g/dL RDW Std Deviation 56.8 H (36.4-46.3) fL RDW Coeff of Gely 16.4 H (11.5-14.5) % Plt Count 181 (130-400) K/uL MPV 10.2 (7.4-10.4) fL PT 17.3 H (9.0-12.0) Seconds INR 1.7 H (0.9-1.1) Sodium 143 (136-145) mmol/L Potassium 4.6 D (3.5-5.1) mmol/L Chloride 117 H (98-107) mmol/L Carbon Dioxide 21 (21-32) mmol/L Anion Gap 5.0 (3-11) BUN 15 (7-18) mg/dl Creatinine 0.86 (0.6-1.4) mg/dl Est Cr Clr Drug Dosing 83.4 ml/min Est GFR ( Amer) 104.0 Est GFR (Non-Af Amer) 89.7 BUN/Creatinine Ratio 17.6 (10-20) Glucose 83 (70-99) mg/dl Calcium 7.5 L (8.5-10.1) mg/dl Phosphorus 1.9 L (2.5-4.9) mg/dl Magnesium 2.3 (1.8-2.4) mg/dl Specimen Hemolysis Medications Administered Current Inpatient Medications Acetaminophen (Tylenol) 650 mg PO Q4H PRN PRN Reason: Pain or Fever Stop: 02/28/20 12:09 Aspirin (Ecotrin Ectab) 81 mg PO QAM [facility] Stop: 02/29/20 08:59 Last Admin: 01/31/20 08:26 Dose: 81 mg Documented by: Bumetanide (Bumex) 2 mg PO HS [facility] Stop: 02/28/20 20:59 Last Admin: 01/29/20 22:47 Dose: Not Given Documented by: Diphenhydramine HCl (Benadryl Capsule) 25 mg PO HS PRN PRN Reason: Sleep Stop: 02/28/20 16:38 Famotidine (Pepcid) 40 mg PO HS [facility] Stop: 02/28/20 20:59 Last Admin: 01/30/20 20:28 Dose: 40 mg Documented by: Ertapenem 1,000 mg/ Sodium (Chloride) 60 mls @ 100 mls/hr IV Q24H [facility] Stop: 03/11/20 09:59 Last Admin: 01/31/20 09:56 Dose: 100 mls/hr Documented by: Sodium Chloride (Nss 1000ml) 1,000 mls @ 100 mls/hr IV .Q10H [facility] Stop: 02/29/20 03:44 Last Infusion: 01/31/20 09:45 Dose: Infused Documented by: Vancomycin HCl 1,250 mg/ (Sodium Chloride) 275 mls @ 125 mls/hr IV Q12H [facility]; Protocol Stop: 02/12/20 15:59 Last Infusion: 01/31/20 05:37 Dose: Infused Documented by: Lovastatin (Mevacor) 40 mg PO HS [facility] Stop: 02/28/20 20:59 Last Admin: 01/30/20 20:29 Dose: 40 mg Documented by: Metoprolol Tartrate (Lopressor) 100 mg PO BID [facility] Stop: 02/28/20 20:59 Last Admin: 01/31/20 08:27 Dose: 100 mg Documented by: Miscellaneous Information (Consult) 1 ea N/A UD PRN PRN Reason: Consult Stop: 02/28/20 13:30 Miscellaneous Information (Pharmacy Consult) 1 ea N/A UD PRN PRN Reason: Consult Stop: 02/28/20 16:41 Adempas: Non- Formulary Patient's Own Med 1 ea PO TID [facility] Stop: 02/28/20 20:59 Last Admin: 01/31/20 08:27 Dose: 1 cap Documented by: Pantoprazole Sodium (Protonix) 40 mg PO QAM [facility] Stop: 02/29/20 08:59 Last Admin: 01/31/20 08:26 Dose: 40 mg Documented by: Polyethylene Glycol (Miralax Powder Packet) 17 gm PO DAILY PRN PRN Reason: Constipation Stop: 02/28/20 12:09 Temazepam (Restoril) 30 mg PO DAILY@2300 [facility] Stop: 02/28/20 22:59 Last Admin: 01/30/20 23:09 Dose: 30 mg Documented by: Warfarin Sodium (Coumadin) 2.5 mg PO TuTh@1600 [facility] Stop: 03/01/20 15:59 Warfarin Sodium (Coumadin) 5 mg PO SuMoWeFrSa@1600 [facility] Stop: 02/29/20 15:59 Last Admin: 01/30/20 17:54 Dose: 5 mg Documented by:
[2020-01-31] MEDS: CALCIUM CARBONATE 500 MG CHEWABLE TAB PO PRN (11:35)
[2020-01-31] MEDS: POT PHOSPHATE MONOBASIC W/ SOD TAB PO SCH ×3 (12:46→20:47)
[2020-01-31] MEDS: LACTOBACILLUS ACIDOPHILUS (FLORANEX) TAB PO SCH ×3 (12:46→20:45)
--- NOTE | 2020-01-31 13:42 | Cardiology Progress Note ---
Date of Service January 31, 2020 Assessment & Plan (1) Gram-positive bacteremia: (2) Fever: (3) Prosthetic valve endocarditis: (4) Ascending aortic aneurysm: (5) Pulmonary hypertension: (6) Pulmonary embolism on long-term anticoagulation therapy: (7) Acute kidney injury superimposed on chronic kidney disease: Patient is a 69-year-old male with complex history as outlined with 2 prior episodes of prosthetic valve endocarditis, last episode 2011 presents now with several week history of persistent febrile complaints and malaise. Blood cultures drawn yesterday are promptly growing gram-positive cocci in chains on both sets. Findings are presumptive of recurrent prosthetic valve recurrent endocarditis. Patient was begun on antibiotics in ER and repeat blood cultures drawn. Physical examination and history are not notable for signs or symptoms of thromboembolic disease, heart failure or conduction system disease. Preliminary review of echocardiogram appears similar to prior study of October 2019 by report and no visualized mobile vegetation No current findings suggest need for urgent or early valve replacement on patient with 3 prior valve replacements and underlying pulmonary hypertension reflecting high surgical risk Blood cultures are now growing strep mitis. EKG unchanged Transesophageal echocardiogram not performed, elevated risk with severe pulmonary hypertension and ultimate goal per patient's wishes to avoid further surgical intervention unless absolutely indicated No visualized vegetations or change in valve function on transthoracic study Plan: Continue IV antibiotics with infectious disease consultation regarding long-term management Repeat transthoracic echocardiogram in a.m. We will follow closely during hospitalization Subjective Patient seen and examined, chart, medications, telemetry reviewed. Feels improved since hospitalization no longer febrile. Slept well last night. No chest pains or worsening shortness of breath. Physical Exam Constitutional: WD/WN, vitals as above no acute distress Eyes: PERRL, conjunctivae normal, anicteric sclerae ENMT: external ear and nose normal, oropharynx normal Neck: trachea midline, no thyromegaly Respiratory: Auscultation: + diminished lung sounds (Clear to auscultation) Cardiovascular: Rate/Rhythm: regular rate and regular rhythm Heart Sounds: normal S1 and normal S2; no gallop and no murmur (Harsh grade 2/6 to 3/6 systolic murmur less than grade 1/6 diastolic murmur) Palpation: normal PMI Vessels: normal carotid upstroke and radial pulses present; no JVD and no carotid bruit Extremities: no edema Gastrointestinal (Abdomen): normal bowel sounds, soft, nontender, no hepatosplenomegaly Musculoskeletal: no cyanosis or clubbing, extremities motor strength 5/5 Skin: no rashes, warm and dry Neurologic: PERRL, EOMI, accommodation nl, no face palsy, no dysarthria Psychiatric: A+Ox3, euthymic affect Results & Data Vital Signs (Past 12 Hours) Vital Signs Temp Pulse Pulse Resp BP Pulse Ox 01/31/20 12:59 36.4 C L 61 18 122/78 96 01/31/20 08:00 57 L 01/31/20 07:38 36.4 C L 63 16 131/76 95 01/31/20 04:26 36.5 C 66 18 111/67 92 Laboratory Results Laboratory Results - last 24 hr 01/31/20 01/31/20 01/31/20 06:03 06:03 06:03 WBC 8.67 RBC 4.64 L Hgb 15.2 Hct 44.7 MCV 96.3 MCH 32.8 MCHC 34.0 RDW Std Deviation 56.8 H RDW Coeff of Gely 16.4 H Plt Count 181 MPV 10.2 PT 17.3 H INR 1.7 H Sodium 143 Potassium 4.6 D Chloride 117 H Carbon Dioxide 21 Anion Gap 5.0 BUN 15 Creatinine 0.86 Est Cr Clr Drug Dosing 83.4 Est GFR ( Amer) 104.0 Est GFR (Non-Af Amer) 89.7 BUN/Creatinine Ratio 17.6 Glucose 83 Calcium 7.5 L Phosphorus 1.9 L Magnesium 2.3 Specimen Hemolysis ECG Additional Comments: 31-JAN-2020 07:42:40 [facility]-CCU ROUTINE RETRIEVAL Normal sinus rhythm Normal ECG When compared with ECG of 30-JAN-2020 06:35, Premature ventricular complexes are no longer Present T wave inversion no longer evident in Inferior lead
[2020-01-31] MEDS ORDERED: VANCOMYCIN TROUGH ONE (15:30)
[2020-01-31] MEDS ORDERED: WARFARIN SOD 2.5 MG TAB PO SCH (16:00)
[2020-01-31] MEDS ORDERED: VANCOMYCIN HCL 1,250 MG in SODIUM CHLORIDE 0.9% 250 ML IV SCH (16:30)
--- NOTE | 2020-01-31 16:43 | Pharmacy Report ---
Pharmacy Abx Dose Short Note - Date of Service January 31, 2020 - Assessment & Plan Assessment 69 year old M receiving VANCOMYCIN AND INVANZ for treatment of G positive bacteremia and suspected Endocarditis. Plan Vancomycin * Trough level of 15.1 mcg/mL is subtherapeutic; want to aim for trough closer to 20 mcg/mL given suspected endocarditis * Changing to 1250 mg IV every 10 hours * Goal trough level: ~20 mcg/mL * Trough ordered for: 01/31 at 1230 Pharmacy will continue to follow and will adjust dose/frequency as necessary. Thank you.
--- NOTE | 2020-01-31 19:00 | Electrocardiogram Report ---
Test Reason : Blood Pressure : / mmHG Vent. Rate : 065 BPM Atrial Rate : 065 BPM P-R Int : 160 ms QRS Dur : 086 ms QT Int : 432 ms P-R-T Axes : 023 -28 012 degrees QTc Int : 449 ms Normal sinus rhythm Normal ECG When compared with ECG of 30-JAN-2020 06:35, Premature ventricular complexes are no longer Present T wave inversion no longer evident in Inferior leads Confirmed by Norbert Vega ([id number]) on 01/31/2020 7:00:10 PM Referred By: REFERRED SELF Confirmed By:Damián Vega
[2020-01-31] MEDS: LOVASTATIN 20 MG TAB PO SCH (20:47)
[2020-01-31] MEDS: FAMOTIDINE 40 MG TABLET PO SCH (20:47)
[2020-01-31] MEDS: TEMAZEPAM 15 MG CAPSULE PO SCH (22:48)
[2020-02-01] MEDS: VANCOMYCIN HCL 1,250 MG in SODIUM CHLORIDE 0.9% 250 ML IV SCH ×2 (02:22→13:31)
[2020-02-01] MEDS ORDERED: VANCOMYCIN TROUGH ONE ×2 (03:30→12:30)
[2020-02-01 06:12] LABS: Hematocrit (blood only) 42.1 % (42-52); Hemoglobin 14.4 g/dL (14.0-18.0); Mean Corpuscular Hemoglobin 32.8 pg (25-34); Mean Corpuscular Hgb Conc 34.2 g/dL (32-36); Mean Corpuscular Volume 95.9 fL (80-100); Mean Platelet Volume 10.8 fL (7.4-10.4); Platelet Count 203 K/uL (130-400); RDW Coefficient of Variation 16.3 % (11.5-14.5); Red Blood Count 4.39 M/uL (4.7-6.1); White Blood Count 7.43 K/uL (4.8-10.8)
[2020-02-01 06:53] LABS: BUN Creatinine Ratio 12.6 (10-20); Calcium 7.5 mg/dl (8.5-10.1); Creatinine Clr Calc Pharmacy 75.5 ml/min; Est GFR (African American) 95.6; Est GFR (Non-African American) 82.5; Magnesium 2.2 mg/dl (1.8-2.4); Phosphorus 2.3 mg/dl (2.5-4.9)
[2020-02-01] MEDS: ADEMPAS PO SCH ×3 (08:59→20:33)
[2020-02-01] MEDS: METOPROLOL TARTRATE 100 MG TAB PO SCH ×2 (08:59→20:33)
[2020-02-01] MEDS: POT PHOSPHATE MONOBASIC W/ SOD TAB PO SCH ×4 (09:00→20:33)
[2020-02-01] MEDS: LACTOBACILLUS ACIDOPHILUS (FLORANEX) TAB PO SCH ×4 (09:00→20:33)
[2020-02-01] MEDS: ASPIRIN 81 MG ECTAB PO SCH (09:00)
[2020-02-01] MEDS: PANTOprazole 40 MG TAB PO SCH (09:00)
--- NOTE | 2020-02-01 09:37 | Hospitalist Progress Note ---
Date of Service February 01, 2020 Assessment & Plan (1) Gram-positive bacteremia: This is a 69yo M with PMH of bicuspid aortic valve s/p AVR complicated by endocarditis requiring repeat valve replacement, ascending aortic aneurysm, pulmonary hypertension, pulmonary embolism on coumadin, chronic HF with preserved EF, CKD III, h/o splenectomy and other medical problems listed below who presents with intermittent fever x 2 weeks and was found to have gram positive bacteremia and possible endocarditis. -Intermittent fever x2 weeks with T-max of 100.7 F. Treated with 7-day course doxycycline for sinusitis 1 week ago -Blood cultures (01/28/20) with preliminary gram-positive cocci, patient in structed to return to hospital for further treatment, positive for strep mitis -Repeat blood cultures (01/29/20) on admission, positive x2 for alpha strep mitis -Started empirically on ertapenem and vancomycin, will continue. Follow cultures. Telemedicine ID consult placed with [facility], recommend to continue vancomycin, ertapenem discontinued -ED physician discussed with Dr. Lyons of [facility] cardiology due to concern for possible endocarditis, with history of AVR, endocarditis in the past. TTE performed -Preliminary review of echocardiogram appears similar to prior study of October 2019 by report and no visualized mobile vegetation No current findings suggest need for urgent or early valve replacement on patient with 3 prior valve replacements and underlying pulmonary hypertension reflecting high surgical risk Transesophageal echocardiogram not performed, elevated risk with severe pulmonary hypertension and ultimate goal per patient's wishes to avoid further surgical intervention unless absolutely indicated No visualized vegetations or change in valve function on transthoracic study Cardiology continues to follow Cardiology discussed again with ID, and recommended to try ceftriaxone again. Unfortunately patient developed reaction, rash and feeling public information director his neck and upper chest area. Therefore will switch back to vancomycin. (2) H/O aortic valve replacement: History [place] in 2000 while living in [place], [place] [facility] [place] to [place] leaf[place] , [place] [facility] [place] endocarditis with vegetation -Follows with journeyman molder Dr. Luis in [place] (3) Pulmonary embolism on long-term anticoagulation therapy: Continue anticoagulation with coumadin. INR goal 2-3 (4) Acute kidney injury superimposed on chronic kidney disease: Creatinine elevated at 1.8 (baseline ~1.5) -Hold Bumex for today. Reassess volume status and renal function -Creatinine down to ~ 1 (5) Pulmonary hypertension: Takes Adempas 2.5mg TID normally. medication is not on formulary Patient's family brought the medication in, will continue Reached out to pulmonary service for further recommendation by admitting phys jarad, child day care center worker recommended transfer to tertiary center given his severe pulmonary hypertension, patient declined transfer. Even after further discussion, patient does not wish to be transferred. DVT Ppx: Coumadin Code status: FULL PCP: Lucas Nelson Dispo: Admit to PCU. Plan to return home once medically stable. Admission and Anticipated Discharge Date Admission Date: January 29, 2020 Subjective Patient is sitting up in bed, in no acute distress, denies any fevers, chills, chest pain, shortness of breath, abdominal pain, nausea or vomiting. Says he feels well overall. Did not tolerate ceftriaxone trial, back to vancomycin. Plan to place PICC line, consent obtained. Review of Systems Review of Systems: All systems reviewed & are unremarkable except as noted in HPI & below Constitutional: no fever and no chills Respiratory: no cough and no dyspnea Cardiovascular: no chest pain and no palpitations Gastrointestinal: no abdominal pain, no nausea and no vomiting Physical Exam Physical Exam: General Appearance: WD/WN, vitals as above, NAD, sitting up in bed, pleasant, conversing easily Head: normocephalic, atraumatic Eyes: normal inspection, PERRL, EOMI, conjunctivae normal, anicteric sclerae ENT: external ear and nose normal, oropharynx normal Neck: trachea midline, no thyromegaly normal visual inspection Respiratory: normal respiratory effort, lungs clear to auscultation, no wheeze, rales, rhonchi. Normal insp/exp effort, no accessory muscle use Cardiovascular: regular rate, rhythm, + 2-3/6 systolic murmur, normal peripheral pulses, no BLE edema. Vessels: no JVD or carotid bruit Chest: normal inspection of chest Abdomen/GI: normal bowel sounds, soft, nontender, nondistended Extremities/Musculoskeletal: no cyanosis or clubbing, extremities motor strength 5/5 Neurologic: PERRL, EOMI, no face palsy, no dysarthria, CN's II-XI intact bilaterally and moves all extremities Psychiatric: A+Ox3, euthymic affect Skin: no rashes, normal color, warm/dry. + R forearm with healing incisions, sutures in place. No surrounding erythema or drainage Results & Data Results & Data ([facility]) Vital Signs (Past 12 Hours) Vital Signs Temp Pulse Pulse Resp BP Pulse Ox 02/01/20 08:50 36.6 C 63 18 123/80 94 02/01/20 03:16 36.3 C L 61 18 109/67 96 02/01/20 00:00 61 01/31/20 23:06 36.3 C L 60 16 130/79 94 Laboratory Results 02/01/20 02/01/20 01/31/20 Range/Units 05:34 05:34 15:03 WBC 7.43 (4.8-10.8) K/uL RBC 4.39 L (4.7-6.1) M/uL Hgb 14.4 (14.0-18.0) g/dL Hct 42.1 (42-52) % MCV 95.9 (80-100) fL MCH 32.8 (25-34) pg MCHC 34.2 (32-36) g/dL RDW Std Deviation 57.0 H (36.4-46.3) fL RDW Coeff of Gely 16.3 H (11.5-14.5) % Plt Count 203 (130-400) K/uL MPV 10.8 H (7.4-10.4) fL Sodium 143 (136-145) mmol/L Potassium 4.0 (3.5-5.1) mmol/L Chloride 115 H (98-107) mmol/L Carbon Dioxide 23 (21-32) mmol/L Anion Gap 5.0 (3-11) BUN 12 (7-18) mg/dl Creatinine 0.95 (0.6-1.4) mg/dl Est Cr Clr Drug Dosing 75.5 ml/min Est GFR ( Amer) 95.6 Est GFR (Non-Af Amer) 82.5 BUN/Creatinine Ratio 12.6 (10-20) Glucose 81 (70-99) mg/dl Calcium 7.5 L (8.5-10.1) mg/dl Phosphorus 2.3 L (2.5-4.9) mg/dl Magnesium 2.2 (1.8-2.4) mg/dl Vancomycin Trough 15.1 (See Comment) mcg/ml Medications Administered Current Inpatient Medications Acetaminophen (Tylenol) 650 mg PO Q4H PRN PRN Reason: Pain or Fever Stop: 02/28/20 12:09 [facility]irin ([facility] [place] Stop: 02/29/20 08:59 Last Admin: 02/01/20 09:00 Dose: 81 mg Documented by: Bumetanide (Bumex) 2 mg PO HS [facility] Stop: 02/28/20 20:59 Last Admin: 01/29/20 22:47 Dose: Not Given Documented by: Calcium Carbonate (Tums) 500 mg PO Q4 PRN PRN Reason: Indigestion Stop: 03/01/20 10:49 Last Admin: 01/31/20 11:35 Dose: 500 mg Documented by: Diphenhydramine HCl (Benadryl Capsule) 25 mg PO HS PRN PRN Reason: Sleep Stop: 02/28/20 16:38 Famotidine (Pepcid) 40 mg PO HS [facility] Stop: 02/28/20 20:59 Last Admin: 01/31/20 20:47 Dose: 40 mg Documented by: Sodium Chloride (Nss 1000ml) 1,000 mls @ 100 mls/hr IV .Q10H [facility] Stop: 02/29/20 03:44 Last Infusion: 01/31/20 09:45 Dose: Infused Documented by: Vancomycin HCl 1,250 mg/ (Sodium Chloride) 275 mls @ 125 mls/hr IV Q10H [facility]; Protocol Stop: 02/14/20 16:59 Last Infusion: 02/01/20 04:39 Dose: Infused Documented by: Lactobacillus Acidophilus (Floranex) 4 tab PO QIDM [facility] Stop: 03/01/20 11:59 Last Admin: 02/01/20 09:00 Dose: 4 tab Documented by: Lovastatin (Mevacor) 40 mg PO HS [facility] Stop: 02/28/20 20:59 Last Admin: 01/31/20 20:47 Dose: 40 mg Documented by: Metoprolol Tartrate (Lopressor) 100 mg PO BID [facility] Stop: 02/28/20 20:59 Last Admin: 02/01/20 08:59 Dose: 100 mg Documented by: Miscellaneous Information (Consult) 1 ea N/A UD PRN PRN Reason: Consult Stop: 02/28/20 13:30 Adempas: Non- Formulary Patient's Own Med 1 ea PO TID [facility] Stop: 02/28/20 20:59 Last Admin: 02/01/20 08:59 Dose: 1 cap Documented by: Pantoprazole Sodium (Protonix) 40 mg PO QAM [facility] Stop: 02/29/20 08:59 Last Admin: 02/01/20 09:00 Dose: 40 mg Documented by: Polyethylene Glycol (Miralax Powder Packet) 17 gm PO DAILY PRN PRN Reason: Constipation Stop: 02/28/20 12:09 Potassium Phosphate (Phospha 250 Neutral 155-852-130 Mg) 1 tab PO QID [facility] Stop: 03/01/20 12:59 Last Admin: 02/01/20 09:00 Dose: 1 tab Documented by: Temazepam (Restoril) 30 mg PO DAILY@2300 [facility] Stop: 02/28/20 22:59 Last Admin: 01/31/20 22:48 Dose: 30 mg Documented by: Warfarin Sodium (Coumadin) 2.5 mg PO TuTh@1600 [facility] Stop: 03/01/20 15:59 Last Admin: 01/31/20 16:43 Dose: 2.5 mg Documented by: Warfarin Sodium (Coumadin) 5 mg PO SuMoWeFrSa@1600 [facility] Stop: 02/29/20 15:59 Last Admin: 01/30/20 17:54 Dose: 5 mg Documented by:
[2020-02-01] MEDS: CALCIUM CARBONATE 500 MG CHEWABLE TAB PO PRN (10:13)
--- NOTE | 2020-02-01 12:16 | Cardiology Progress Note ---
Date of Service February 01, 2020 Assessment & Plan (1) Gram-positive bacteremia: Strep mitis (2) Fever: (3) Prosthetic valve endocarditis: (4) Ascending aortic aneurysm: (5) Pulmonary hypertension: (6) Pulmonary embolism on long-term anticoagulation therapy: (7) Acute kidney injury superimposed on chronic kidney disease: Patient is a 69-year-old male with complex history as outlined with 2 prior episodes of prosthetic valve endocarditis, last episode 2011 presents now with several week history of persistent febrile complaints and malaise. Blood cultures drawn yesterday are promptly growing gram-positive cocci in chains on both sets. Findings are presumptive of recurrent prosthetic valve recurrent endocarditis. Patient was begun on antibiotics in ER and repeat blood cultures drawn. Physical examination and history are not notable for signs or symptoms of thromboembolic disease, heart failure or conduction system disease. Preliminary review of echocardiogram appears similar to prior study of October 2019 by report and no visualized mobile vegetation No current findings suggest need for urgent or early valve replacement on patient with 3 prior valve replacements and underlying pulmonary hypertension reflecting high surgical risk Blood cultures are now growing strep mitis. EKG unchanged Transesophageal echocardiogram not performed, elevated risk with severe pulmonary hypertension and ultimate goal per patient's wishes to avoid further surgical intervention unless absolutely indicated No visualized vegetations or change in valve function on transthoracic study Repeat study 02/01/2020, no change on echocardiogram no visualized vegetations Plan: Continue antibiotic therapies, patient will require PICC line Discussed with infectious disease. Strep mitis with intermediate sensitivity to ampicillin Recommended ceftriaxone 2 g/day for 6 weeks plus gentamicin 3 mg/kg/day for 2 weeks Patient had previously noted possible intolerance to ceftriaxone at the end of a 6-week course. If patient develops intolerance will need to use vancomycin as substitution Would recommend initiate antibiotic change in hospital We will follow closely during hospitalization Subjective Patient was seen and examined, chart, medications, telemetry reviewed. No complications or issues overnight. Remains afebrile. Repeat blood cultures now no growth x24 hours Echocardiogram this morning without change Physical Exam Constitutional: WD/WN, vitals as above no acute distress Eyes: PERRL, conjunctivae normal, anicteric sclerae ENMT: external ear and nose normal, oropharynx normal Neck: trachea midline, no thyromegaly Respiratory: Auscultation: + diminished lung sounds (Clear to auscultation) Cardiovascular: Rate/Rhythm: regular rate and regular rhythm Heart Sounds: normal S1 and normal S2; no gallop and no murmur (Harsh grade 2/6 to 3/6 systolic murmur less than grade 1/6 diastolic murmur) Palpation: normal PMI Vessels: normal carotid upstroke and radial pulses present; no JVD and no carotid bruit Extremities: no edema Gastrointestinal (Abdomen): normal bowel sounds, soft, nontender, no hepatosplenomegaly Musculoskeletal: no cyanosis or clubbing, extremities motor strength 5/5 Skin: no rashes, warm and dry Neurologic: PERRL, EOMI, accommodation nl, no face palsy, no dysarthria Psychiatric: A+Ox3, euthymic affect Results & Data Vital Signs (Past 12 Hours) Vital Signs Temp Pulse Pulse Resp BP Pulse Ox 02/01/20 12:00 37.0 C 59 L 18 125/71 95 02/01/20 08:50 36.6 C 63 18 123/80 94 02/01/20 08:00 65 02/01/20 03:16 36.3 C L 61 18 109/67 96 Laboratory Results Laboratory Results - last 24 hr 01/31/20 02/01/20 02/01/20 15:03 05:34 05:34 WBC 7.43 RBC 4.39 L Hgb 14.4 Hct 42.1 MCV 95.9 MCH 32.8 MCHC 34.2 RDW Std Deviation 57.0 H RDW Coeff of Gely 16.3 H Plt Count 203 MPV 10.8 H Sodium 143 Potassium 4.0 Chloride 115 H Carbon Dioxide 23 Anion Gap 5.0 BUN 12 Creatinine 0.95 Est Cr Clr Drug Dosing 75.5 Est GFR ( Amer) 95.6 Est GFR (Non-Af Amer) 82.5 BUN/Creatinine Ratio 12.6 Glucose 81 Calcium 7.5 L Phosphorus 2.3 L Magnesium 2.2 Vancomycin Trough 15.1
[2020-02-01] MEDS ORDERED: DiphenhydrAMINE HCL 50 MG/ML VIAL IV PRN (13:51)
[2020-02-01] MEDS ORDERED: EPINEPHRINE ADULT AUTO-INJECT 0.3 MG SYR IM PRN (13:53)
[2020-02-01] MEDS ORDERED: GENTAMICIN CONSULT ACTIVE PRN (13:56)
[2020-02-01] MEDS ORDERED: cefTRIAXone SODIUM 2,000 MG in DEXTROSE 5% 50 ML IV SCH (14:00)
[2020-02-01] MEDS ORDERED: methylPREDNISolone 40 MG in SYRINGE 0 ML IV PRN (14:00)
[2020-02-01] MEDS ORDERED: methylPREDNISolone 40 MG in SYRINGE 0 ML IV SCH (14:00)
--- NOTE | 2020-02-01 14:08 | Pharmacy Report ---
Pharmacy Abx Dose Progress Nt - Date of Service February 01, 2020 - Pharmacy Dosing Scope The patient is currently receiving the following antimicrobial agents per Pharmacy consult: Vancomycin 1250 mg IV every 10 hours. - Objective Vital Signs (Past 12hrs): Vital Signs Temp Pulse Pulse Resp BP Pulse Ox 02/01/20 12:00 37.0 C 59 L 18 125/71 95 02/01/20 08:50 36.6 C 63 18 123/80 94 02/01/20 08:00 65 02/01/20 03:16 36.3 C L 61 18 109/67 96 Lab Results (24hrs): Laboratory Tests (24 Hours) 02/01/20 02/01/20 02/01/20 12:30 05:34 05:34 WBC 7.43 Creatinine 0.95 Est Cr Clr Drug Dosing 75.5 Vancomycin Trough 17.6 01/31/20 15:03 WBC Creatinine Est Cr Clr Drug Dosing Vancomycin Trough 15.1 Micro Results: 01/29/20 09:20 Aerobic Blood Culture - Final Blood Streptococcus mitis/oralis Anaerobic Blood Culture - Final Streptococcus mitis/oralis 01/29/20 09:15 Aerobic Blood Culture - Final Blood Streptococcus mitis/oralis Anaerobic Blood Culture - Final Streptococcus mitis/oralis - Risk Factors for Resistance * Antimicrobial use within the last 90 days - Doxycycline PO x 1 week [employer] - Assessment & Plan Assessment 69 year old M receiving IV Vancomycin for treatment of streptococcal endocarditis. Dr Reyes discussed with ID, decision made to change to ceftriaxone + gentamicin for easier outpatient administration times and strep susceptibilities. Patient with possible rash to ceftriaxone, giving dose and monitoring, + gentamicin for gram positive synergy. Day # 4 of antimicrobial therapy. Plan Vancomycin IV - DISCONTINUE * Trough level of 17.6 mcg/mL is therapeutic * Changing antibiotics to IV Ceftriaxone + Gentamicin x 4 weeks total antibiotic treatment Ceftriaxone * 2g IV Q24 hours Gentamicin * 3mg/kg/day (240mg IV Daily) for CrCl > 60ml/min for streptococcal endocarditis gram positive synergy * Trough level prior to 3rd dose to rule out accumulation of drug and potential for toxicity. Goal trough for 3mg/kg dose is undetectable. If trough level is detectable, will change to 1mg/kg dosing. Pharmacy will continue to follow and will adjust dose/frequency as necessary. Thank you.
[2020-02-01] MEDS ORDERED: DiphenhydrAMINE HCL 50 MG/ML VIAL ONE (14:23)
[2020-02-01] MEDS ORDERED: VANCOMYCIN CONSULT ACTIVE PRN (15:04)
[2020-02-01] MEDS ORDERED: GENTAMICIN SULFATE 240 MG in DEXTROSE 5% 100 ML IV SCH (16:00)
[2020-02-01] MEDS: WARFARIN SOD 5 MG TAB PO SCH (16:01)
[2020-02-01] MEDS: VANCOMYCIN HCL 1,500 MG in SODIUM CHLORIDE 0.9% 500 ML IV SCH (16:01)
[2020-02-01 16:39] LABS: INR 1.7 (0.9-1.1); Prothrombin Time 17.7 Seconds (9.0-12.0)
[2020-02-01] MEDS: FAMOTIDINE 40 MG TABLET PO SCH (20:33)
[2020-02-01] MEDS: LOVASTATIN 20 MG TAB PO SCH (20:33)
[2020-02-01] MEDS: TEMAZEPAM 15 MG CAPSULE PO SCH (23:13)
[2020-02-02] MEDS: VANCOMYCIN HCL 1,500 MG in SODIUM CHLORIDE 0.9% 500 ML IV SCH ×2 (05:05→16:25)
[2020-02-02 07:00] LABS: Hematocrit (blood only) 42.6 % (42-52); Hemoglobin 14.8 g/dL (14.0-18.0); Mean Corpuscular Hemoglobin 33.5 pg (25-34); Mean Corpuscular Hgb Conc 34.7 g/dL (32-36); Mean Corpuscular Volume 96.4 fL (80-100); Mean Platelet Volume 10.4 fL (7.4-10.4); Platelet Count 205 K/uL (130-400); RDW Coefficient of Variation 16.3 % (11.5-14.5); RDW Standard Deviation 57.3 fL (36.4-46.3); Red Blood Count 4.42 M/uL (4.7-6.1)
[2020-02-02 07:10] LABS: INR 1.9 (0.9-1.1); Prothrombin Time 19.3 Seconds (9.0-12.0)
[2020-02-02 07:27] LABS: BUN Creatinine Ratio 13.2 (10-20); Calcium 7.9 mg/dl (8.5-10.1); Creatinine Clr Calc Pharmacy 76.3 ml/min; Est GFR (African American) 96.8; Est GFR (Non-African American) 83.6; Potassium 3.8 mmol/L (3.5-5.1)
[2020-02-02] MEDS: LACTOBACILLUS ACIDOPHILUS (FLORANEX) TAB PO SCH ×4 (07:52→21:01)
[2020-02-02] MEDS: METOPROLOL TARTRATE 100 MG TAB PO SCH ×2 (07:52→21:02)
[2020-02-02] MEDS: POT PHOSPHATE MONOBASIC W/ SOD TAB PO SCH ×4 (07:53→21:03)
[2020-02-02] MEDS: PANTOprazole 40 MG TAB PO SCH (07:54)
[2020-02-02] MEDS: ASPIRIN 81 MG ECTAB PO SCH (07:54)
[2020-02-02] MEDS: ADEMPAS PO SCH ×3 (07:55→21:03)
--- NOTE | 2020-02-02 13:22 | Cardiology Progress Note ---
Date of Service February 02, 2020 Assessment & Plan (1) Gram-positive bacteremia: Strep mitis (2) Fever: (3) Prosthetic valve endocarditis: (4) Ascending aortic aneurysm: (5) Pulmonary hypertension: (6) Pulmonary embolism on long-term anticoagulation therapy: (7) Acute kidney injury superimposed on chronic kidney disease: Patient is a 69-year-old male with complex history as outlined with 2 prior episodes of prosthetic valve endocarditis, last episode 2011 presents now with several week history of persistent febrile complaints and malaise. Blood cultures drawn yesterday are promptly growing gram-positive cocci in chains on both sets. Findings are presumptive of recurrent prosthetic valve recurrent endocarditis. Patient was begun on antibiotics in ER and repeat blood cultures drawn. Physical examination and history are not notable for signs or symptoms of thromboembolic disease, heart failure or conduction system disease. Preliminary review of echocardiogram appears similar to prior study of October 2019 by report and no visualized mobile vegetation No current findings suggest need for urgent or early valve replacement on patient with 3 prior valve replacements and underlying pulmonary hypertension reflecting high surgical risk Blood cultures are now growing strep mitis. EKG unchanged Transesophageal echocardiogram not performed, elevated risk with severe pulmonary hypertension and ultimate goal per patient's wishes to avoid further surgical intervention unless absolutely indicated No visualized vegetations or change in valve function on transthoracic study Repeat study 02/01/2020, no change on echocardiogram no visualized vegetations Plan: Continue antibiotic therapies, s/p PICC line Discussed with infectious disease. Strep mitis with intermediate sensitivity to ampicillin abx per ID Ok to d/c to home from cardiac standpoint We will follow closely during hospitalization Subjective Patient seen and examined, chart reviewed. States that he feels great and is anxious for discharge. Denies any cardiac complaints of chest pain, shortness of breath, palpitations, lightheadedness, dizziness, syncope or fever. Telemetry reviewed: Normal sinus rhythm without arrhythmia or significant ectopy. Review of Systems Review of Systems: All systems reviewed & are unremarkable except as noted in HPI & below Physical Exam Physical Exam: General: Awake, alert and oriented x 3. No acute distress. HEENT: Normocephalic, atraumatic. Pupils equal, round and reactive to light and accommodation. Extraocular muscles are intact. Anicteric sclera. Moist mucous membranes. Neck: No JVD. No bruit. Cardiovascular: Regular. Positive S-4. Normal S-1 and S-2. No S-3. 3/6 mid to late systolic ejection murmur, greatest at the right sternal border, second intercostal space with radiation to the bilateral carotids. No rubs. Pulmonary: Clear to auscultation bilaterally. No rales, rhonchi, or wheezing. Abdomen: Bowel sounds x 4, soft. No rebound, guarding or tenderness. No organomegaly. Extremities: No clubbing, cyanosis or edema. +2 pedal pulses bilaterally. Skin: Warm and dry. Results & Data Vital Signs (Past 12 Hours) Vital Signs Temp Pulse Pulse Resp BP Pulse Ox 02/02/20 11:41 36.6 C 59 L 17 126/75 95 02/02/20 08:00 58 L 02/02/20 07:38 36.3 C L 55 L 16 102/60 93 02/02/20 02:38 36.6 C 60 16 121/78 93
[2020-02-02] MEDS: WARFARIN SOD 5 MG TAB PO SCH (16:24)
[2020-02-02] MEDS: LOVASTATIN 20 MG TAB PO SCH (21:02)
[2020-02-02] MEDS: FAMOTIDINE 40 MG TABLET PO SCH (21:03)
[2020-02-02] MEDS: TEMAZEPAM 15 MG CAPSULE PO SCH (23:15)
[2020-02-03] MEDS ORDERED: VANCOMYCIN TROUGH ONE (03:30)
[2020-02-03 04:29] LABS: Hemoglobin 14.8 g/dL (14.0-18.0); Mean Corpuscular Hgb Conc 34.4 g/dL (32-36); Mean Platelet Volume 10.8 fL (7.4-10.4); Platelet Count 216 K/uL (130-400); RDW Standard Deviation 55.9 fL (36.4-46.3); Red Blood Count 4.48 M/uL (4.7-6.1); White Blood Count 8.48 K/uL (4.8-10.8)
[2020-02-03 04:41] LABS: INR 1.9 (0.9-1.1); Prothrombin Time 19.8 Seconds (9.0-12.0)
[2020-02-03 04:49] LABS: Calcium 7.8 mg/dl (8.5-10.1); Creatinine Clr Calc Pharmacy 76.3 ml/min; Est GFR (African American) 96.8; Est GFR (Non-African American) 83.6; Potassium 3.8 mmol/L (3.5-5.1)
[2020-02-03] MEDS: VANCOMYCIN HCL 1,500 MG in SODIUM CHLORIDE 0.9% 500 ML IV SCH (05:38)
[2020-02-03] MEDS: PANTOprazole 40 MG TAB PO SCH (07:45)
[2020-02-03] MEDS: METOPROLOL TARTRATE 100 MG TAB PO SCH (07:46)
[2020-02-03] MEDS: POT PHOSPHATE MONOBASIC W/ SOD TAB PO SCH (07:46)
[2020-02-03] MEDS: ASPIRIN 81 MG ECTAB PO SCH (07:46)
[2020-02-03] MEDS: LACTOBACILLUS ACIDOPHILUS (FLORANEX) TAB PO SCH (07:47)
[2020-02-03] MEDS: ADEMPAS PO SCH (07:49)
--- NOTE | 2020-02-03 08:25 | Pharmacy Report ---
Pharmacy Abx Dose Short Note - Date of Service February 03, 2020 - Assessment & Plan Assessment 69 year old M receiving IV Vancomycin for treatment of strep endocarditis Day # 6 of antimicrobial therapy. Plan Vancomycin * Trough level of 21 mcg/mL is therapeutic for endocarditis, goal ~20mcg/ml * Continue dose of 1500 mg IV every 12 hours Pharmacy will continue to follow and will adjust dose/frequency as necessary. Thank you.
--- NOTE | 2020-02-03 08:48 | Hospitalist Progress Note ---
Date of Service February 02, 2020 Assessment & Plan (1) Gram-positive bacteremia: This is a 69yo M with PMH of bicuspid aortic valve s/p AVR complicated by endocarditis requiring repeat valve replacement, ascending aortic aneurysm, pulmonary hypertension, pulmonary embolism on coumadin, chronic HF with preserved EF, CKD III, h/o splenectomy and other medical problems listed below who presents with intermittent fever x 2 weeks and was found to have gram positive bacteremia and possible endocarditis. -Intermittent fever x2 weeks with T-max of 100.7 F. Treated with 7-day course doxycycline for sinusitis 1 week ago -Blood cultures (01/28/20) with preliminary gram-positive cocci, patient in structed to return to hospital for further treatment, positive for strep mitis -Repeat blood cultures (01/29/20) on admission, positive x2 for alpha strep mitis -Started empirically on ertapenem and vancomycin, will continue. Follow cultures. Telemedicine ID consult placed with [facility], recommend to continue vancomycin, ertapenem discontinued -ED physician discussed with Dr. Lyons of [facility] due to concern for possible endocarditis, with history of AVR, endocarditis in the past. TTE performed -Preliminary review of echocardiogram appears similar to prior study of October 2019 by report and no visualized mobile vegetation No current findings suggest need for urgent or early valve replacement on patient with 3 prior valve replacements and underlying pulmonary hypertension reflecting high surgical risk Transesophageal echocardiogram not performed, elevated risk with severe pulmonary hypertension and ultimate goal per patient's wishes to avoid further surgical intervention unless absolutely indicated No visualized vegetations or change in valve function on transthoracic study Cardiology continues to follow Cardiology discussed again with ID, and recommended to try ceftriaxone again. Unfortunately patient developed reaction, rash and feeling slide machine tender his neck and upper chest area. Therefore switched back to vancomycin. (2) H/O aortic valve replacement: History of AVR in 2000 while living in [place], 2009 @ [facility] [place] after found to have flail leaflet , 2011 porcine valve @ [facility] [place] after endocarditis with vegetation -Follows with elastic attacher zigzag Dr. Luis in [place] (3) Pulmonary embolism on long-term anticoagulation therapy: Continue anticoagulation with coumadin. INR goal 2-3 (4) Acute kidney injury superimposed on chronic kidney disease: Creatinine elevated at 1.8 (baseline ~1.5) -Hold Bumex for today. Reassess volume status and renal function -Creatinine down to ~ 1 (5) Pulmonary hypertension: Takes Adempas 2.5mg TID normally. medication is not on formulary Patient's family brought the medication in, will continue Reached out to pulmonary service for further recommendation by admitting physician, commercial internship recommended transfer to tertiary center given his severe pulmonary hypertension, patient declined transfer. Even after further discussion, patient does not wish to be transferred. DVT Ppx: Coumadin Code status: FULL PCP: Lucas Nelson Dispo: Admit to PCU. Plan to return home once medically stable. Admission and Anticipated Discharge Date Admission Date: January 29, 2020 Subjective Patient is sitting up in bed, in no acute distress, denies any fevers, chills, chest pain, shortness of breath, abdominal pain, nausea or vomiting. Says he feels well overall. Did not tolerate ceftriaxone trial, back to vancomycin. PICC line was placed yesterday. Review of Systems Review of Systems: All systems reviewed & are unremarkable except as noted in HPI & below Constitutional: no fever and no chills Respiratory: no cough and no dyspnea Cardiovascular: no chest pain and no palpitations Gastrointestinal: no abdominal pain, no nausea and no vomiting Physical Exam Physical Exam: General Appearance: WD/WN, vitals as above, NAD, sitting up in bed, pleasant, conversing easily Head: normocephalic, atraumatic Eyes: normal inspection, PERRL, EOMI, conjunctivae normal, anicteric sclerae ENT: external ear and nose normal, oropharynx normal Neck: trachea midline, no thyromegaly normal visual inspection Respiratory: normal respiratory effort, lungs clear to auscultation, no wheeze, rales, rhonchi. Normal insp/exp effort, no accessory muscle use Cardiovascular: regular rate, rhythm, + 2-3/6 systolic murmur, normal peripheral pulses, no BLE edema. Vessels: no JVD or carotid bruit Chest: normal inspection of chest Abdomen/GI: normal bowel sounds, soft, nontender, nondistended Extremities/Musculoskeletal: no cyanosis or clubbing, extremities motor strength 5/5, PICC line placed in left upper extremity Neurologic: PERRL, EOMI, no face palsy, no dysarthria, CN's II-XI intact bilaterally and moves all extremities Psychiatric: A+Ox3, euthymic affect Skin: no rashes, normal color, warm/dry. + R forearm with healing incisions, sutures in place. No surrounding erythema or drainage Results & Data Results & Data ([facility]) Vital Signs (Past 12 Hours) Vital Signs Temp Pulse Pulse Resp BP Pulse Ox 02/03/20 08:00 54 L 02/03/20 07:41 36.6 C 60 17 117/72 92 02/03/20 03:22 36.5 C 60 16 121/66 95 02/02/20 23:59 57 L 02/02/20 22:57 37.1 C 58 L 16 139/82 95
--- NOTE | 2020-02-03 08:55 | Hospitalist Progress Note ---
Date of Service February 03, 2020 Assessment & Plan (1) Gram-positive bacteremia: Strep mitis bacteremia This is a 69yo M with PMH of bicuspid aortic valve s/p AVR complicated by endocarditis requiring repeat valve replacement, ascending aortic aneurysm, pulmonary hypertension, pulmonary embolism on coumadin, chronic HF with preserved EF, CKD III, h/o splenectomy and other medical problems listed below who presents with intermittent fever x 2 weeks and was found to have gram p ositive bacteremia and possible endocarditis. -Intermittent fever x2 weeks with T-max of 100.7 F. Treated with 7-day course doxycycline for sinusitis 1 week ago -Blood cultures (01/28/20) with preliminary gram-positive cocci, patient instructed to return to hospital for further treatment, positive for strep mitis -Repeat blood cultures (01/29/20) on admission, positive x2 for alpha strep mitis -Started empirically on ertapenem and vancomycin, on admission. Telemedicine ID consult placed with [facility] ID, recommend to continue vancomycin, ertapenem was discontinued -ED physician discussed with Dr. Lyons of [facility] cardiology due to concern for possible endocarditis, with history of AVR, endocarditis in the past. TTE performed -review of echocardiogram appears similar to prior study of October 2019 by report and no visualized mobile vegetation No current findings suggest need for urgent or early valve replacement on patient with 3 prior valve replacements and underlying pulmonary hypertension reflecting high surgical risk Transesophageal echocardiogram not performed, elevated risk with severe pulmonary hypertension and ultimate goal per patient's wishes to avoid further surgical intervention unless absolutely indicated No visualized vegetations or change in valve function on transthoracic study Cardiology continues to follow Repeat study 02/01/2020, no change on echocardiogram no visualized vegetations. Cardiology discussed again with ID, and recommended to try ceftriaxone again. 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 Therefore switched back to vancomycin. Per ID, patient needs at least 4 weeks of IV antibiotics. Blood culture, January 30, 2020, negative x2 Pt will be discharged on 1500 mg IV q12 hrs vancomycin (2) H/O aortic valve replacement: History of [place]R in 1999 while living in [place], [place] [facility] [place] to [place] , 2011 [place] [facility] [place] endocarditis with vegetation -Follows with customer business manager Dr. Luis in [place] (3) Pulmonary embolism on long-term anticoagulation therapy: Continue anticoagulation with coumadin. INR goal 2-3 (4) Acute kidney injury superimposed on chronic kidney disease: Creatinine elevated at 1.8 (baseline ~1.5) -Held Bumex. Reassess volume status and renal function daily -Creatinine down to ~ 1 (5) Pulmonary hypertension: Takes Adempas 2.5mg TID normally. medication is not on formulary Patient's family brought the medication in, will continue Reached out to pulmonary service for further recommendation by admitting physician, store team member recommended transfer to tertiary center given his severe pulmonary hypertension, patient declined transfer. Even after further discussion, patient does not wish to be transferred. DVT Ppx: Coumadin Code status: FULL PCP: Lucas Nelson Dispo: Plan to discharge home with home health. Admission and Anticipated Discharge Date Admission Date: January 29, 2020 Subjective Patient is sitting up in bed, in no acute distress, denies any fevers, chills, chest pain, shortness of breath, abdominal pain, nausea or vomiting. Says he feels well overall. Vancomycin trough this AM 21 (goal is ~20). Review of Systems Review of Systems: All systems reviewed & are unremarkable except as noted in HPI & below Constitutional: no fever and no chills Respiratory: no cough and no dyspnea Cardiovascular: no chest pain and no palpitations Gastrointestinal: no abdominal pain, no nausea and no vomiting Physical Exam Physical Exam: General Appearance: WD/WN, vitals as above, NAD, sitting up in bed, pleasant, conversing easily Head: normocephalic, atraumatic Eyes: normal inspection, PERRL, EOMI, conjunctivae normal, anicteric sclerae ENT: external ear and nose normal, oropharynx normal Neck: trachea midline, no thyromegaly normal visual inspection Respiratory: normal respiratory effort, lungs clear to auscultation, no wheeze, rales, rhonchi. Normal insp/exp effort, no accessory muscle use Cardiovascular: regular rate, rhythm, + 3/6 systolic murmur, normal peripheral pulses, no BLE edema. Vessels: no JVD or carotid bruit Chest: normal inspection of chest Abdomen/GI: normal bowel sounds, soft, nontender, nondistended Extremities/Musculoskeletal: no cyanosis or clubbing, extremities motor strength 5/5, PICC line placed in left upper extremity Neurologic: PERRL, EOMI, no face palsy, no dysarthria, CN's II-XI intact bilaterally and moves all extremities Psychiatric: A+Ox3, euthymic affect Skin: no rashes, normal color, warm/dry. + R forearm with healing incisions, sutures removed. No surrounding erythema or drainage Results & Data Results & Data ([facility]) Vital Signs (Past 12 Hours) Vital Signs Temp Pulse Pulse Resp BP Pulse Ox 02/03/20 08:00 54 L 02/03/20 07:41 36.6 C 60 17 117/72 92 02/03/20 03:22 36.5 C 60 16 121/66 95 02/02/20 23:59 57 L 02/02/20 22:57 37.1 C 58 L 16 139/82 95 Laboratory Results 02/03/20 02/03/20 02/03/20 Range/Units 03:46 03:46 03:46 WBC 8.48 (4.8-10.8) K/uL RBC 4.48 L (4.7-6.1) M/uL Hgb 14.8 (14.0-18.0) g/dL Hct 43.0 (42-52) % MCV 96.0 (80-100) fL MCH 33.0 (25-34) pg MCHC 34.4 (32-36) g/dL RDW Std Deviation 55.9 H (36.4-46.3) fL RDW Coeff of Gely 16.0 H (11.5-14.5) % Plt Count 216 (130-400) K/uL MPV 10.8 H (7.4-10.4) fL PT 19.8 H (9.0-12.0) Seconds INR 1.9 H (0.9-1.1) Sodium 144 (136-145) mmol/L Potassium 3.8 (3.5-5.1) mmol/L Chloride 115 H (98-107) mmol/L Carbon Dioxide 22 (21-32) mmol/L Anion Gap 7.0 (3-11) BUN 13 (7-18) mg/dl Creatinine 0.94 (0.6-1.4) mg/dl Est Cr Clr Drug Dosing 76.3 ml/min Est GFR ( Amer) 96.8 Est GFR (Non-Af Amer) 83.6 BUN/Creatinine Ratio 14.0 (10-20) Glucose 83 (70-99) mg/dl Calcium 7.8 L (8.5-10.1) mg/dl Vancomycin Trough (See Comment) mcg/ml 02/03/20 Range/Units 03:46 WBC (4.8-10.8) K/uL RBC (4.7-6.1) M/uL Hgb (14.0-18.0) g/dL Hct (42-52) % MCV (80-100) fL MCH (25-34) pg MCHC (32-36) g/dL RDW Std Deviation (36.4-46.3) fL RDW Coeff of Gely (11.5-14.5) % Plt Count (130-400) K/uL MPV (7.4-10.4) fL PT (9.0-12.0) Seconds INR (0.9-1.1) Sodium (136-145) mmol/L Potassium (3.5-5.1) mmol/L Chloride (98-107) mmol/L Carbon Dioxide (21-32) mmol/L Anion Gap (3-11) BUN (7-18) mg/dl Creatinine (0.6-1.4) mg/dl Est Cr Clr Drug Dosing ml/min Est GFR ( Amer) Est GFR (Non-Af Amer) BUN/Creatinine Ratio (10-20) Glucose (70-99) mg/dl Calcium (8.5-10.1) mg/dl Vancomycin Trough 21.0 (See Comment) mcg/ml Medications Administered Current Inpatient Medications Acetaminophen (Tylenol) 650 mg PO Q4H PRN PRN Reason: Pain or Fever Stop: 02/28/20 12:09 Aspirin (Ecotrin Ectab) 81 mg PO [facility] Stop: 02/29/20 08:59 Last Admin: 02/03/20 07:46 Dose: 81 mg Documented by: Bumetanide (Bumex) 2 mg PO [facility] Stop: 02/28/20 20:59 Last Admin: 01/29/20 22:47 Dose: Not Given Documented by: Calcium Carbonate (Tums) 500 mg PO Q4 PRN PRN Reason: Indigestion Stop: 03/01/20 10:49 Last Admin: 02/01/20 10:13 Dose: 500 mg Documented by: Diphenhydramine HCl (Benadryl Capsule) 25 mg PO HS PRN PRN Reason: Sleep Stop: 02/28/20 16:38 Diphenhydramine HCl (Benadryl) 12.5 mg IV Q30M PRN PRN Reason: Allergic Symptoms Stop: 03/02/20 13:50 Last Admin: 02/01/20 14:26 Dose: 12.5 mg Documented by: Epinephrine HCl (Epipen) 0.3 mg IM UD PRN PRN Reason: Allergic Symptoms Stop: 03/02/20 13:52 Famotidine (Pepcid) 40 mg PO HS ANTHONY Stop: 02/28/20 20:59 Last Admin: 02/02/20 21:03 Dose: 40 mg Documented by: Heparin Sodium (Beef Lung) (Heparin Sod 10 Unit/Ml Flush) 5 ml FLUSH PRN PRN PRN Reason: Flush Stop: 03/02/20 20:32 Sodium Chloride (Nss 1000ml) 1,000 mls @ 100 mls/hr IV .Q10H ANTHONY Stop: 02/29/20 03:44 Last Infusion: 01/31/20 09:45 Dose: Infused Documented by: Methylprednisolone 40 mg/ (Syringe) 0.64 mls @ 1.5 mls/min IV Q30M PRN PRN Reason: Allergic Reaction Stop: 03/02/20 13:59 Vancomycin HCl 1,500 mg/ (Sodium Chloride) 530 mls @ 200 mls/hr IV Q12H ANTHONY; Protocol Stop: 03/14/20 15:59 Last Admin: 02/03/20 05:38 Dose: 200 mls/hr Documented by: Lactobacillus Acidophilus (Floranex) 4 tab PO QIDM ANTHONY Stop: 03/01/20 11:59 Last Admin: 02/03/20 07:47 Dose: 4 tab Documented by: Lovastatin (Mevacor) 40 mg PO HS ANTHONY Stop: 02/28/20 20:59 Last Admin: 02/02/20 21:02 Dose: 40 mg Documented by: Metoprolol Tartrate (Lopressor) 100 mg PO BID ANTHONY Stop: 02/28/20 20:59 Last Admin: 02/03/20 07:46 Dose: 100 mg Documented by: Miscellaneous Information (Consult) 1 ea N/A UD PRN PRN Reason: Consult Stop: 03/02/20 15:03 Adempas: Non- Formulary Patient's Own Med 1 ea PO TID [facility] Stop: 02/28/20 20:59 Last Admin: 02/03/20 07:49 Dose: 1 cap Documented by: Pantoprazole Sodium (Protonix) 40 mg PO QAM [facility] Stop: 02/29/20 08:59 Last Admin: 02/03/20 07:45 Dose: 40 mg Documented by: Polyethylene Glycol (Miralax Powder Packet) 17 gm PO DAILY PRN PRN Reason: Constipation Stop: 02/28/20 12:09 Potassium Phosphate (Phospha 250 Neutral 155-852-130 Mg) 1 tab PO QID [facility] Stop: 03/01/20 12:59 Last Admin: 02/03/20 07:46 Dose: 1 tab Documented by: Temazepam (Restoril) 30 mg PO DAILY@2300 [facility] Stop: 02/28/20 22:59 Last Admin: 02/02/20 23:15 Dose: 30 mg Documented by: Warfarin Sodium (Coumadin) 2.5 mg PO TuTh@1600 [facility] Stop: 03/01/20 15:59 Last Admin: 01/31/20 16:43 Dose: 2.5 mg Documented by: Warfarin Sodium (Coumadin) 5 mg PO SuMoWeFrSa@1600 [facility] Stop: 02/29/20 15:59 Last Admin: 02/02/20 16:24 Dose: 5 mg Documented by:
--- NOTE | 2020-02-03 11:12 | Discharge Summary ---
Date of Service February 03, 2020 Admission HPI Per Admitting Provider This is a 69yo M with PMH of bicuspid aortic valve s/p AVR complicated by endocarditis requiring repeat valve replacement, ascending aortic aneurysm, pulmonary hypertension, pulmonary embolism on coumadin, chronic HF with preserved EF, CKD III, h/o splenectomy and other medical problems listed below who presents with intermittent fever x 2 weeks. T-max of 100.7 F. Has also had intermittent chills. Was seen by PCP with initial thoughts of sinusitis and was treated with 7-day course of doxycycline. COVID-19 PCR was also ordered and negative on January 23. Intermittent fevers persisted and patient developed flank pain, which he was seen for in the ED yesterday with concern for appendicitis. CT abdomen pelvis was normal but blood cultures were obtained. Initial cultures grew gram-positive cocci patient was instructed to return to ED early this morning. Currently, patient feels well. Denies any fever, chills, headache, lightheadedness, chest pain, palpitations, shortness of breath, nausea, vomiting, abdominal pain, dysuria, diarrhea or constipation. There is concern for endocarditis due to history of AVR complicated by endocarditis in the past requiring repeat valve replacement. During this time, endocarditis was thought to be caused by lower extremity cellulitis. Patient denies any wounds or rashes. Did have 2 lipomas removed last week. CXR and UA appear unremarkable. ED provider discussed with vp cardiovascular, with TTE ordered. Broad-spectrum antibiotic coverage started with ertapenem and vancomycin. Most recent TTE from 11/04 with EF of 68%, normal left ventricular wall motion, mildly dilated right ventricle with normal systolic function, proximal ascending thoracic aorta is moderately enlarged (4.8 cm), moderately dilated aortic arch (4.2 cm) and estimated pulmonary artery systolic pressure is 61mm Hg. Addendum Discussed case with both Dr. Thomas ([place] plush finisher) and Dr. Whyte, who both recommend transfer to tertiary care setting due to pulmonary HTN, missed doses fo Adempas and concern for decompensation in setting of gram positive bacteremia and possible infectious endocarditis. Discussed with [facility] transfer team and hospitalist at [facility], Dr. Thapa and who kindly accepted the patient for further management. Explained to the patient regarding need for transfer but patient refused to be transferred. Patient is willing to take the risk while getting treated at [facility]. Will discuss again with patient if he decompensates. Admission Exam Per Admitting Provider General Appearance: WD/WN, vitals as above, NAD, sitting up in bed, pleasant, conversing easily Head: normocephalic, atraumatic Eyes: normal inspection, PERRL, conjunctivae normal, anicteric sclerae ENT: external ear and nose normal, oropharynx normal Neck: trachea midline, no thyromegaly normal visual inspection Respiratory: normal respiratory effort, lungs clear to auscultation, no wheeze, rales, rhonchi. Normal insp/exp effort, no accessory muscle use Cardiovascular: regular rate, rhythm, +systolic murmur, normal peripheral pulses, no BLE edema. Vessels: no JVD or carotid bruit Chest: normal inspection of chest Abdomen/GI: normal bowel sounds, soft, nontender, no hepatosplenomegaly Extremities/Musculoskeletal: no cyanosis or clubbing, extremities motor strength 5/5 Neurologic: PERRL, EOMI, accommodation nl, no face palsy, no dysarthria, CN's II-XI intact bilaterally and moves all extremities Psychiatric: A+Ox3, euthymic affect Skin: no rashes, normal color, warm/dry. + R forearm with healing incisions, sutures in place. No surrounding erythema or drainage Principal Diagnosis Strep mitis bacteremia Hx of prosthetic valve endocarditis Discharge Exam General Appearance: WD/WN, vitals as above, NAD, sitting up in bed, pleasant, conversing easily Head: normocephalic, atraumatic Eyes: normal inspection, PERRL, EOMI, conjunctivae normal, anicteric sclerae ENT: external ear and nose normal, oropharynx normal Neck: trachea midline, no thyromegaly normal visual inspection Respiratory: normal respiratory effort, lungs clear to auscultation, no wheeze, rales, rhonchi. Normal insp/exp effort, no accessory muscle use Cardiovascular: regular rate, rhythm, + 3/6 systolic murmur, normal peripheral pulses, no BLE edema. Vessels: no JVD or carotid bruit Chest: normal inspection of chest Abdomen/GI: normal bowel sounds, soft, nontender, nondistended Extremities/Musculoskeletal: no cyanosis or clubbing, extremities motor strength 5/5, PICC line placed in left upper extremity Neurologic: PERRL, EOMI, no face palsy, no dysarthria, CN's II-XI intact bilaterally and moves all extremities Psychiatric: A+Ox3, euthymic affect Skin: no rashes, normal color, warm/dry. + R forearm with healing incisions, sutures removed. No surrounding erythema or drainage Discharge Data Allergies Allergy/AdvReac Type Severity Reaction Status Date / Time Penicillins Allergy Unknown RASH FROM Verified 01/29/20 10:39 PCN; HAD KEFLEX W/O PROBLEM rifampin Allergy Unknown rash Verified 02/01/20 14:30 ceftriaxone AdvReac Intermediate RASH AND Verified 02/01/20 14:30 TINGLING BACK OF NECK HE WAS COMPLETING A 6 W Consultations 01/29/20 10:14 ED Decision to Admit Stat 01/29/20 12:10 Consult Cardiology Routine 01/29/20 13:46 Consult Infectious Diseases Routine Procedures Performed Operation Date: 01/31/20 07:15 Actual Procedures p Transesophageal Echo w/Anesthesia - Joel Lyons MD - was not done Hospital Course (1) Gram-positive bacteremia: Strep mitis bacteremia This is a 69yo M with PMH of bicuspid aortic valve s/p AVR complicated by endocarditis requiring repeat valve replacement, ascending aortic aneurysm, pulmonary hypertension, pulmonary embolism on coumadin, chronic HF with preserved EF, CKD III, h/o splenectomy and other medical problems listed below who presents with intermittent fever x 2 weeks and was found to have gram positive bacteremia and possible endocarditis. -Intermittent fever x2 weeks with T-max of 100.7 F. Treated with 7-day course d oxycycline for sinusitis 1 week ago -Blood cultures (01/28/20) with preliminary gram-positive cocci, patient instructed to return to hospital for further treatment, positive for strep mitis -Repeat blood cultures (01/29/20) on admission, positive x2 for alpha strep mitis -Started empirically on ertapenem and vancomycin, on admission. Telemedicine ID consult placed with [facility] ID, recommend to continue vancomycin, ertapenem was discontinued -ED physician discussed with Dr. Lyons of [email or web address] cardiology due to concern fo r possible endocarditis, with history of AVR, endocarditis in the past. TTE performed -review of echocardiogram appears similar to prior study of October 2019 by report and no visualized mobile vegetation No current findings suggest need for urgent or early valve replacement on patient with 3 prior valve replacements and underlying pulmonary hypertension reflecting high surgical risk Transesophageal echocardiogram not performed, elevated risk with severe pulmonary hypertension and ultimate goal per patient's wishes to avoid further surgical intervention unless absolutely indicated No visualized vegetations or change in valve function on transthoracic study Cardiology continues to follow Repeat study 02/01/2020, no change on echocardiogram no visualized vegetations. Cardiology discussed again with ID, and recommended to try ceftriaxone again (in the past pt had a reaction on ceftriaxone). Unfortunately patient developed allergic reaction, rash and feeling tinsel machine operator his neck and upper chest area. Therefore switched back to vancomycin. Per ID, patient needs at least 4 weeks of IV antibiotics. Blood culture, January 30, 2020, negative x2 Pt will be discharged on 1500 mg IV q12 hrs vancomycin (2) H/O aortic valve replacement: History of AVR in 1999 while living in [place], [place] [facility] [place] found to have flail leaflet , 2011 porcine valve [place] [facility] [place] endocarditis with vegetation -Follows with vp cardiovascular Dr. Luis in [place] (3) Pulmonary embolism on long-term anticoagulation therapy: Continue anticoagulation with coumadin. INR goal 2-3 (4) Acute kidney injury superimposed on chronic kidney disease: Creatinine elevated at 1.8 (baseline ~1.5) -Held Bumex. Reassess volume status and renal function daily -Creatinine down to ~ 1 (5) Pulmonary hypertension: Takes Adempas 2.5mg TID normally. medication is not on formulary Patient's family brought the medication in, will continue Reached out to pulmonary service for further recommendation by admitting physician, plush finisher recommended transfer to tertiary center given his severe pulmonary hypertension, patient declined transfer. Even after further discussion, patient does not wish to be transferred. DVT Ppx: Coumadin Code status: FULL PCP: Lucas Nelson Dispo: Plan to discharge home with home health. Total Time Total Time Spent Total Time Spent (In Minutes): 45 Total Time Includes: Examination of the Patient, Discharge Planning, Medication Reconciliation and Communication With Other Providers Discharge Plan Discharge Items Patient Disposition: Home - Home Health Services Reason For Visit: INFECTION Discharge Diagnosis: Strep mitis bacteremia Hx of prosthetic valve endocarditis Activity: Per Instructions section Non-emergency contact: Primary Care Provider, Specialist and Automobile Wrecker Call non-emergency contact if: you have any medication questions and your symptoms worsen Follow-up/Referrals: Lucas Nelson DO [Primary Care Provider] - Diet: Heart Healthy Addtl Attending Provider Instructions: Follow up with PCP in 1 week. Obtain vancomycin trough in next 4-5 days. Send results to pt's PCP. Goal is a bout 20. If the level is not close to 20, dose of vancomycin will need to be adjusted. Infectious Disease in [place] aware of the pt as they were consulted while pt hospitalized. Recommend to follow up with ID in 2 weeks (possibly via telemedicine ?). Continue vancomycin 1500mg IV every 12 hrs for next 4 weeks (at least until 03/03/2020). The final end date of treatment may be adjusted by your PCP or primary care doctor. While you were in the hospital we held your diuretic/ bumex. You can resume it now. Weigh yourself daily and record these numbers. Also recommend to have your blood pressure check by home health nurse. Contact your vp cardiovascular or PCP about your weight and blood pressure within 1 week so your bumex dose can be adjusted appropriately. Also recommend to take probiotics daily while on intravenous antibiotic therapy. Pending Studies at Discharge: No Stand-Alone Forms: [facility], Smoking Cessation Medications and DC Order Prescriptions: New aspirin 81 mg Tablet,Delayed Release (Dr/Ec) 81 mg PO QAM 30 Days Qty: 30 RF: 0 Lactobacillus acidoph-L.bulgar [Floranex] 1 million cell Tablet 4 tab PO QIDM 30 Days Qty: 30 RF: 0 Continued metoprolol tartrate 100 mg tablet 100 mg PO BID RF: 0 lovastatin 40 mg tablet 40 mg PO HS RF: 0 temazepam 30 mg capsule 30 mg PO HS RF: 0 pantoprazole 40 mg tablet,delayed release (DR/EC) 40 mg PO QAM RF: 0 bumetanide 1 mg tablet 2 mg PO HS RF: 0 Hypercare 15 % (w/v) liquid 15 % TOPICAL HS RF: 0 Adempas 2.5 mg tablet 2.5 mg PO TID RF: 0 famotidine 40 mg tablet 40 mg PO HS RF: 0 diphenhydramine HCl [Allergy Relief(diphenhydramin)] 25 mg tablet 25 mg PO HS PRN (Reason: Allergy Symptoms) RF: 0 warfarin 5 mg tablet 2.5 mg PO TUTH@0800 RF: 0 warfarin 5 mg tablet 5 mg PO SUMOWEFRSA@0800 RF: 0 Discharge Orders: Discharge Order (Routine); Ordered 02/03/20 Ordered By: Jhon Calderon/Other Patient Handouts: Bacterial Endocarditis, ED Bacteremia, Suspected (Adult) Admission Data Admit Date/Time: 01/29/20 10:26 Attending Provider: Jhon Reyes Admit Provider: Gertrude Diego Primary Care Provider: Lucas Nelson Other Providers: Gertrude Diego ; Joel Lyons ; Jamar Raya ; Vidhya Mohan ; Benedicto Pepper I. ; Ministerio Lechuga II ; Angella Richey ; Aurelio Henry ; [facility] Other Interventions: Discharge Summary Assessment (RN) Last Done: 02/03/20 09:09
[2020-02-03] MEDS ORDERED: GENTAMICIN TROUGH ONE (15:30)
== END 2020-02-03 11:27 | disposition home health service (06) | DRG 872 ==
LOC: ED 08:58 → SUATTDRO 10:26 → 2S 10:26